=== PATIENT | male | born 1940 | race Caucasian/White ===

== ENCOUNTER → 2018-03-02 | Outpatient (CLI) | payer MEDICARE ==
--- NOTE | 2018-03-02 11:56 | ECHOF ---
Referral Reason:I10 Hypertension R07.89 Chest Pain MEASUREMENTS -------- HEIGHT: 182.9 cm WEIGHT: 111.1 kg BP: RVIDd: 3.6 cm (< 3.3) IVSd: 1.5 cm (0.6 - 1.1) LVIDd: 4.3 cm (3.9 - 5.3) LVPWd: 1.4 cm (0.6 - 1.1) IVSs: 1.9 cm LVIDs: 3.0 cm LVPWs: 1.8 cm LA Diam: 3.8 cm (2.7 - 3.8) LAESV Index (A-L): 29.94 ml/m Ao Diam: 3.3 cm (2.0 - 3.7) AV Cusp: 2.3 cm (1.5 - 2.6) MV EXCURSION: 12.842 mm (> 18.000) MV EF SLOPE: 29 mm/s (70 - 150) EPSS: 0.3 cm MV E Connor: 0.82 m/s MV DecT: 223 ms MV A Connor: 0.95 m/s MV E/A Ratio: 0.87 AR PHT: 668 ms RAP: 5.00 mmHg RVSP: 20.86 mmHg FINDINGS -------- Sinus rhythm. This was a technically adequate study. The left ventricular size is normal. There is moderate concentric left ventricular hypertrophy. O verall left ventricular systolic function is normal with, an EF between 55 - 60 %. The right ventricle is mildly enlarged. LA is midly dilated 29-33ml/m2. The right atrium is normal in size. There is mild aortic valve sclerosis. There is mild aortic regurgitation. The mitral valve is normal. Mild tricuspid regurgitation present. Right ventricular systolic pressure is normal at < 35 mmHg. Trace/mild (physiologic) pulmonic regurgitation. The aortic root size is normal. IVC Not well visulized. There is no pericardial effusion. CONCLUSIONS -------- 1. Sinus rhythm. 2. This was a technically adequate study. 3. The left ventricular size is normal. 4. There is moderate concentric left ventricular hypertrophy. 5. Overall left ventricular systolic function is normal with, an EF between 55 - 60 %. 6. The right ventricle is mildly enlarged. 7. LA is midly dilated 29-33ml/m2. 8. The right atrium is normal in size. 9. There is mild aortic valve sclerosis. 10. There is mild aortic regurgitation. 11. The mitral valve is normal. 12. Mild tricuspid regurgitation present. 13. Right ventricular systolic pressure is normal at < 35 mmHg. 14. Trace/mild (physiologic) pulmonic regurgitation. 15. The aortic root size is normal. 16. IVC Not well visulized. 17. There is no pericardial effusion. FINANCIAL DATA ANALYST: Jeniffer Dugan RDCS
--- NOTE | 2018-03-02 12:51 | ECHOS ---
STRESS ECHOCARDIOGRAM DATE OF SERVICE: 03/02/2018 INDICATIONS: Hypertension and shortness of breath. MEDICATIONS: BASELINE HEART RATE: 65 BASELINE BLOOD PRESSURE: 160/82 MAXIMUM HEART RATE: 125 MAXIMUM BLOOD PRESSURE: 174/89 85% MPHR: 123 100% MPHR: 145 METS: 7.0 MAXIMUM STAGE REACHED: II TOTAL EXERCISE TIME: 5 minutes CLINICAL INFORMATION: The patient was exercised for a total period of 5 minutes. Peak heart rate of 125 was achieved. Maximum blood pressure 174/89 mmHg was noted. Resting EKG shows normal sinus rhythm with normal FL interval and QRS duration and normal ST-T waves. No ST-segment depression suggestive of ischemia is noted. The baseline echocardiographic images reveals normal left ventricular chamber size with normal left ventricular systolic function. In the immediate post exercise period, normal increase in the wall thickness and contractility is noted. FINAL IMPRESSION: This stress echocardiographic study is negative for stress-induced ischemia. Patient's exercise tolerance is average. No dysrhythmias are noted. MMODL / IJN: [id number] /
== END | disposition home or self-care (01) ==
LOC: RADECHMAIN 08:02
PROVIDERS: ATTEND Family Medicine
DX: I08.2 Rheumatic disorders of both aortic and tricuspid valves (principal); I11.9 Hypertensive heart disease without heart failure; R07.89 Other chest pain
CPT/HCPCS: 93306; 93351

== ENCOUNTER → 2018-06-14 | Outpatient (CLI) | payer MEDICARE ==
--- NOTE | 2018-06-14 14:28 | XR ---
EXAMINATION TYPE: XR thoracic spine complete DATE OF EXAM: 06/14/2018 CLINICAL HISTORY: Radiculopathy per order. Pain for 2 weeks per patient. TECHNIQUE: Frontal, lateral, and swimmer's view of thoracic spine are obtained. COMPARISON: None. FINDINGS: Thoracic spine show straightened alignment without evidence of acute fracture or dislocatio n. Vertebral body heights are fairly well preserved. There is mild to moderate multilevel disc space narrowing in the lower thoracic spine. There is moderate to severe multilevel anterior and lateral s purring in the mid to lower thoracic spine. Visualized ribs are intact bilaterally. IMPRESSION: As above.
== END ==
LOC: RADXRMAIN 13:50
PROVIDERS: ATTEND Family Medicine
DX: M48.04 Spinal stenosis, thoracic region (principal)
CPT/HCPCS: 72072

== ENCOUNTER → 2019-05-22 | Outpatient (CLI) | payer MEDICARE ==
--- NOTE | 2019-05-22 11:58 | XR ---
EXAMINATION TYPE: XR chest 2V DATE OF EXAM: 05/22/2019 COMPARISON: None INDICATION: Dyspnea TECHNIQUE: Frontal and lateral views of the chest are obtained. FINDINGS: The heart size is normal. The pulmonary vasculature is normal. The lungs are clear. IMPRESSION: 1. No acute pulmonary process.
== END | disposition home or self-care (01) ==
LOC: RADXRMAIN 11:09
PROVIDERS: ATTEND Family Medicine
DX: R06.09 Other forms of dyspnea (principal)
CPT/HCPCS: 71046

== ENCOUNTER → 2021-01-13 | Outpatient (CLI) | payer MEDICARE ==
[~2021-01-13] MED LIST: ACETAMINOPHEN TAB 500 MG TAB PO STA; BAMLANIVIMAB (EUA) 700 MG, ETESEVIMAB (EUA) 1,400 MG in SODIUM CHLORIDE 0.9% 50 ML IVPB ONE; KETOROLAC 15 MG/ML 1 ML VIAL IVP STA; SODIUM CHLORIDE 0.9% 1,000 ML IV STA; SODIUM CHLORIDE 0.9% 50 ML IVPB ONE; SODIUM CHLORIDE 0.9% 500 ML 500 ML in EMPTY BAG 1 BAG IV PRN
--- NOTE | 2021-01-13 11:31 | ED ---
General Adult HPI - General Chief complaint: Upper Respiratory Infection Stated complaint: Covid exposure, SOB Time Seen by Provider: 01/13/21 11:04 Source: patient Mode of arrival: ambulatory Limitations: no limitations - History of Present Illness Initial comments: 80-year-old male with a past medical history of hyperlipidemia, hypertension presents to the emergency room for a chief complaint of not feeling well. Patient states 5 days ago he started to not feel well. States he started to develop body aches and a cough. States that this started to improve however worsened again today. States he is having body aches especially in his back. States that he has a cough but no shortness of breath. Denies chest pain. Patient does admit to slight diarrhea. States he does not have an appetite and has not been drinking much. Patient is concerned that he could have coronavirus. I did recheck his temperature in the room and it is 102.9.Patient has no other complaints at this time including shortness of breath, chest pain, abdominal pain, nausea or vomiting, headache, or visual changes. - Related Data Home Medications Medication Instructions Recorded Confirmed Celecoxib [CeleBREX] 200 mg PO BID 01/13/21 01/13/21 Furosemide [Lasix] 20 mg PO DAILY PRN 01/13/21 01/13/21 Latanoprost [Xalatan 0.005%] 1 drop BOTH EYES HS 01/13/21 01/13/21 Multivitamins, Thera [Multivitamin 1 tab PO DAILY 01/13/21 01/13/21 (formulary)] Quinapril/Hydrochlorothiazide 1 tab PO DAILY 01/13/21 01/13/21 [Quinapril-Hctz 20-25 mg Tab] RX: Omeprazole 20 mg PO DAILY 01/13/21 01/13/21 Simvastatin [Zocor] 80 mg PO HS 01/13/21 01/13/21 Allergies Allergy/AdvReac Type Severity Reaction Status Date / Time No Known Allergies Allergy Verified 01/13/21 11:51 Review of Systems ROS Statement: Those systems with pertinent positive or pertinent negative responses have been documented in the HPI. ROS Other: All systems not noted in ROS Statement are negative. Past Medical History Past Medical History: Heart Failure, Hyperlipidemia, Hypertension History of Any Multi-Drug Resistant Organisms: None Reported Additional Past Surgical History / Comment(s): L knee arthroscopy Past Psychological History: No Psychological Hx Reported Smoking Status: Never smoker Past Alcohol Use History: Occasional Past Drug Use History: None Reported General Exam Limitations: no limitations General appearance: alert, in no apparent distress Head exam: Present: atraumatic, normocephalic, normal inspection Eye exam: Present: normal appearance, PERRL, EOMI. Absent: scleral icterus, conjunctival injection, periorbital swelling ENT exam: Present: normal exam, mucous membranes moist Neck exam: Present: normal inspection. Absent: tenderness, meningismus, lymphadenopathy Respiratory exam: Present: normal lung sounds bilaterally. Absent: respiratory distress, wheezes, rales, rhonchi, stridor Cardiovascular Exam: Present: regular rate, normal rhythm, normal heart sounds. Absent: systolic murmur, diastolic murmur, rubs, gallop, clicks GI/Abdominal exam: Present: soft, normal bowel sounds. Absent: distended, tenderness, guarding, rebound, rigid Course Vital Signs 01/13/21 01/13/21 01/13/21 10:56 11:50 13:41 Temperature 98.6 F 102.9 F H 99.0 F Pulse Rate 72 59 L Respiratory 18 16 Rate Blood Pressure 148/80 136/78 O2 Sat by Pulse 96 96 Oximetry Medical Decision Making - Medical Decision Making Vitals are stable. Patient does have a 102.9 fever. He is well-appearing. CBC unremarkable. CMP does show evidence of dehydration. He also has mild hyponatremia. He was given a liter of fluid. Urinalysis is unremarkable. Patient is coronavirus positive. He does have an infiltrate in the right upper lobe suspicious for Covid pneumonia. At this time patient is well-appearing and stable. He is saturating at 95% while I am in the room. He is comfortable with discharge home. He is feeling better after fluids and antipyretics. I did discuss risks versus benefits of antibody infusion including emergency use authorization and risk of ALLERGIC reaction. Patient does prefer to have this infusion. He will be discharged home after infusion is completed. - Lab Data Result diagrams: 01/13/21 12:19 01/13/21 12:19 Lab Results 01/13/21 01/13/21 01/13/21 Range/Units 11:52 11:52 12:19 WBC 5.2 (3.8-10.6) k/uL RBC 5.54 (4.30-5.90) m/uL Hgb 14.6 (13.0-17.5) gm/dL Hct 42.4 (39.0-53.0) % MCV 76.5 L (80.0-100.0) fL MCH 26.3 (25.0-35.0) pg MCHC 34.3 (31.0-37.0) g/dL RDW 17.0 H (11.5-15.5) % Plt Count 170 (150-450) k/uL MPV 8.0 Neutrophils % 78 % Lymphocytes % 15 % Monocytes % 6 % Eosinophils % 0 % Basophils % 0 % Neutrophils # 4.0 (1.3-7.7) k/uL Lymphocytes # 0.8 L (1.0-4.8) k/uL Monocytes # 0.3 (0-1.0) k/uL Eosinophils # 0.0 (0-0.7) k/uL Basophils # 0.0 (0-0.2) k/uL Anisocytosis Slight Microcytosis Slight Sodium (137-145) mmol/L Potassium (3.5-5.1) mmol/L Chloride (98-107) mmol/L Carbon Dioxide (22-30) mmol/L Anion Gap mmol/L BUN (9-20) mg/dL Creatinine (0.66-1.25) mg/dL Est GFR (CKD-EPI)AfAm (>60 ml/min/1.73 sqM) Est GFR (CKD-EPI)NonAf (>60 ml/min/1.73 sqM) Glucose (74-99) mg/dL Calcium (8.4-10.2) mg/dL Total Bilirubin (0.2-1.3) mg/dL AST (17-59) U/L ALT (4-49) U/L Alkaline Phosphatase (38-126) U/L Total Protein (6.3-8.2) g/dL Albumin (3.5-5.0) g/dL Urine Color Yellow Urine Appearance Clear (Clear) Urine pH 5.5 (5.0-8.0) Ur Specific [place] 1.023 (1.001-1.035) Urine Protein 2+ H (Negative) Urine Glucose (UA) Negative (Negative) Urine Ketones 1+ H (Negative) Urine Blood Small H (Negative) Urine Nitrite Negative (Negative) Urine Bilirubin Negative (Negative) Urine Urobilinogen <2.0 (<2.0) mg/dL Ur Leukocyte Esterase Negative (Negative) Urine RBC 1 (0-5) /hpf Urine WBC 2 (0-5) /hpf Ur Squamous Epith Cells <1 (0-4) /hpf Urine Mucus Occasional H (None) /hpf Coronavirus (PCR) Detected A (Not Detectd) 01/13/21 Range/Units 12:19 WBC (3.8-10.6) k/uL RBC (4.30-5.90) m/uL Hgb (13.0-17.5) gm/dL Hct (39.0-53.0) % MCV (80.0-100.0) fL MCH (25.0-35.0) pg MCHC (31.0-37.0) g/dL RDW (11.5-15.5) % Plt Count (150-450) k/uL MPV Neutrophils % % Lymphocytes % % Monocytes % % Eosinophils % % Basophils % % Neutrophils # (1.3-7.7) k/uL Lymphocytes # (1.0-4.8) k/uL Monocytes # (0-1.0) k/uL Eosinophils # (0-0.7) k/uL Basophils # (0-0.2) k/uL Anisocytosis Microcytosis Sodium 129 L (137-145) mmol/L Potassium 3.7 (3.5-5.1) mmol/L Chloride 98 (98-107) mmol/L Carbon Dioxide 22 (22-30) mmol/L Anion Gap 9 mmol/L BUN 25 H (9-20) mg/dL Creatinine 1.09 (0.66-1.25) mg/dL Est GFR (CKD-EPI)AfAm 75 (>60 ml/min/1.73 sqM) Est GFR (CKD-EPI)NonAf 65 (>60 ml/min/1.73 sqM) Glucose 97 (74-99) mg/dL Calcium 8.0 L (8.4-10.2) mg/dL Total Bilirubin 0.8 (0.2-1.3) mg/dL AST 60 H (17-59) U/L ALT 28 (4-49) U/L Alkaline Phosphatase 58 (38-126) U/L Total Protein 5.7 L (6.3-8.2) g/dL Albumin 3.1 L (3.5-5.0) g/dL Urine Color Urine Appearance (Clear) Urine pH (5.0-8.0) Ur Specific [place] (1.001-1.035) Urine Protein (Negative) Urine Glucose (UA) (Negative) Urine Ketones (Negative) Urine Blood (Negative) Urine Nitrite (Negative) Urine Bilirubin (Negative) Urine Urobilinogen (<2.0) mg/dL Ur Leukocyte Esterase (Negative) Urine RBC (0-5) /hpf Urine WBC (0-5) /hpf Ur Squamous Epith Cells (0-4) /hpf Urine Mucus (None) /hpf Coronavirus (PCR) (Not Detectd) Disposition Clinical Impression: Pneumonia due to COVID-19 virus, COVID-19, Dehydration Disposition: ADMITTED IP TO THIS HOSP Condition: Fair Instructions (If sedation given, give patient instructions): Coronavirus Disease 2019 (COVID-19) Additional Instructions: Please drink plenty of fluids. Take Tylenol as needed for fever. You can take 2 extra strength Tylenols every 6 hours. Follow-up with your doctor. Return to the emergency room for any worsening symptoms. Is patient prescribed a controlled substance at d/c from ED?: No Referrals: Jomar Pederson MD [Primary Care Provider] - 1-2 days Time of Disposition: 13:55
--- NOTE | 2021-01-13 12:28 | XR ---
EXAMINATION TYPE: XR chest 1V portable DATE OF EXAM: 01/13/2021 HISTORY: Shortness of breath. COMPARISON: 05/22/2019 TECHNIQUE: Single view of the chest is submitted. FINDINGS: Demonstrated are scattered senescent parenchymal change. There is infiltrate right upper lobe suspicious for Covid 19 pneumonia. The heart is stable. Hilar and mediastinal structures are within normal limits. Degenerative changes are seen of the dorsal spine. IMPRESSION: 1. There is infiltrate right upper lobe suspicious for Covid 19 pneumonia.
[2021-01-13 12:30] LABS: Appearance,Urine Clear (Clear); Bilirubin,Urine Negative (Negative); Blood,Urine Small (Negative); Color,Urine Yellow; Glucose,Urine (UA) Negative (Negative); Ketones,Urine 1+ (Negative); Leukocyte Esterase,Urine Negative (Negative); Mucus,Urine Occasional /hpf; Nitrite,Urine Negative (Negative); PH, Urine 5.5 (5.0-8.0); Protein,Urine 2+ (Negative); RBC,Urine 1 /hpf (0-5); Specific Gravity,Urine 1.023 (1.001-1.035); Squamous Epithelial Cell,Urine <1 /hpf (0-4); Urobilinogen,Urine <2.0 mg/dL (<2.0); WBC,Urine 2 /hpf (0-5)
[2021-01-13 12:32] LABS: Anisocytosis Slight; Basophils % (A) 0 %; Eosinophils % (A) 0 %; HCT 42.4 % (39.0-53.0); HGB 14.6 gm/dL (13.0-17.5); Lymphocytes # (A) 0.8 k/uL (1.0-4.8); Lymphocytes % (A) 15 %; MCH 26.3 pg (25.0-35.0); MCHC 34.3 g/dL (31.0-37.0); MCV 76.5 fL (80.0-100.0); Microcytosis Slight; Monocytes # (A) 0.3 k/uL (0-1.0); Monocytes % (A) 6 %; Neutrophils % (A) 78 %; Platelet Count 170 k/uL (150-450); RBC 5.54 m/uL (4.30-5.90); WBC 5.2 k/uL (3.8-10.6)
[2021-01-13 12:50] LABS: Albumin 3.1 g/dL (3.5-5.0); Potassium 3.7 mmol/L (3.5-5.1); Total Bilirubin 0.8 mg/dL (0.2-1.3); Total Protein 5.7 g/dL (6.3-8.2)
[2021-01-13 14:26] VITALS: RESP 18; TEMP 97.7
[2021-01-13 16:12] VITALS: BP 152/71; PULSE 54
== END ==
LOC: EC 10:50 → PROCWHC3 10:50 → EDSTATUS 14:09
PROVIDERS: ATTEND Physician Assistant Medical
DX: U07.1 COVID-19 (principal); J12.82 Pneumonia due to coronavirus disease 2019; Z79.1 Long term (current) use of non-steroidal anti-inflammatories (NSAID); Z79.899 Other long term (current) drug therapy; I11.0 Hypertensive heart disease with heart failure; E86.0 Dehydration; E78.5 Hyperlipidemia, unspecified
CPT/HCPCS: 36415; 80053; 85025; 81001; 87635; 71045; J1885; Q0245; M0245; 96361; 96374; 99283

== ENCOUNTER → 2021-01-27 | Outpatient (CLI) | payer MEDICARE ==
--- NOTE | 2021-01-28 06:34 | XR ---
EXAMINATION TYPE: XR chest 2V DATE OF EXAM: 01/27/2021 COMPARISON: Chest x-ray January 13, 2021 HISTORY: Shortness of breath today. Recent covid positive. TECHNIQUE: Frontal and lateral views of the chest are obtained. FINDINGS: There are worsening bilateral multifocal opacities. The cardiac silhouette size is stable and within normal limits. Multilevel spurring in the spine. IMPRESSION: Worsening bilateral multifocal opacities consistent with covid-19 infection progression.
== END | disposition home or self-care (01) ==
LOC: RADXRMAIN 16:45
PROVIDERS: ATTEND Nurse Practitioner
DX: U07.1 COVID-19 (principal)
CPT/HCPCS: 71046

== ENCOUNTER 2021-01-28 01:16 | Inpatient (IN) | payer MEDICARE ==
[2021-01-28] MEDS ORDERED: ACETAMINOPHEN TAB 500 MG TAB PO STA (01:42)
[2021-01-28] MEDS ORDERED: KETOROLAC 15 MG/ML 1 ML VIAL IVP STA (01:42)
[2021-01-28] MEDS ORDERED: ALBUTEROL HFA INHALER INHALATION STA (01:42)
[2021-01-28] MEDS ORDERED: SODIUM CHLORIDE 0.9% 1,000 ML IV STA ×2 (01:42)
--- NOTE | 2021-01-28 01:46 | ED ---
Syncope HPI - General Chief Complaint: Dizziness Stated Complaint: Covid+ Time Seen by Provider: 01/28/21 01:37 Source: patient, RN notes reviewed, old records reviewed, Caregiver Mode of arrival: EMS Limitations: no limitations - History of Present Illness Initial Comments: This is a 72-year-old male who presents today after syncopal event. Patient jennifer mosher this event did hit his head. Patient had urination and then syncope. Patient denying chest pain but has been short of breath of increasing fatigue significance lately disease does feel short of breath throughout recent coronavirus diagnosis. Minimal movement does admit to lower extremity edema and swelling especially right lower Shorty. Which she states is always greater than left. No recurrent fevers currently MD Complaint: loss of consciousness, collapsed -: hour(s) Prodromal Symptoms: none -: second(s) Witnessed: no Injuries Sustained Associated with Event: Head Current Symptoms: shortness of breath, weakness History: other (Recent coronavirus infection) Context: recent illness Treatments Prior to Arrival: none - Related Data Home Medications Medication Instructions Recorded Confirmed Celecoxib [CeleBREX] 200 mg PO BID 01/13/21 01/28/21 Furosemide [Lasix] 20 mg PO DAILY PRN 01/13/21 01/28/21 Latanoprost [Xalatan 0.005%] 1 drop BOTH EYES HS 01/13/21 01/28/21 Multivitamins, Thera [Multivitamin 1 tab PO DAILY 01/13/21 01/28/21 (formulary)] Omeprazole 20 mg PO DAILY 01/13/21 01/28/21 Quinapril/Hydrochlorothiazide 1 tab PO DAILY 01/13/21 01/28/21 [Quinapril-Hctz 20-25 mg Tab] Simvastatin [Zocor] 80 mg PO HS 01/13/21 01/28/21 Azithromycin [Zithromax Z-pack (6 See Taper PO DIRECTED 01/28/21 01/28/21 tabs)] Cefdinir 300 mg PO BID 01/28/21 01/28/21 methylPREDNISolone [Medrol Dose See Taper PO DIRECTED 01/28/21 01/28/21 Pack] Allergies Allergy/AdvReac Type Severity Reaction Status Date / Time No Known Allergies Allergy Verified 01/13/21 11:51 Review of Systems ROS Statement: Those systems with pertinent positive or pertinent negative responses have been documented in the HPI. ROS Other: All systems not noted in ROS Statement are negative. Past Medical History Past Medical History: Heart Failure, Hyperlipidemia, Hypertension History of Any Multi-Drug Resistant Organisms: None Reported Additional Past Surgical History / Comment(s): L knee arthroscopy Past Psychological History: No Psychological Hx Reported Smoking Status: Never smoker Past Alcohol Use History: None Reported Past Drug Use History: None Reported General Exam Limitations: no limitations General appearance: alert, in no apparent distress, anxious, in distress Head exam: Present: atraumatic, normocephalic, normal inspection Eye exam: Present: normal appearance, PERRL, EOMI. Absent: scleral icterus, conjunctival injection, periorbital swelling ENT exam: Present: normal exam, mucous membranes dry Neck exam: Present: normal inspection. Absent: tenderness, meningismus, lymphadenopathy Respiratory exam: Present: normal lung sounds bilaterally. Absent: respiratory distress, wheezes, rales, rhonchi, stridor Cardiovascular Exam: Present: regular rate, normal rhythm, normal heart sounds. Absent: systolic murmur, diastolic murmur, rubs, gallop, clicks GI/Abdominal exam: Present: soft, normal bowel sounds. Absent: distended, ten derness, guarding, rebound, rigid Extremities exam: Present: normal inspection, full ROM, normal capillary refill. Absent: tenderness, pedal edema, joint swelling, calf tenderness Back exam: Present: normal inspection Neurological exam: Present: alert, oriented X3, CN II-XII intact Psychiatric exam: Present: normal affect, normal mood Skin exam: Present: warm, dry, intact, normal color. Absent: rash Course Vital Signs 01/28/21 01/28/21 01/28/21 01:35 01:43 01:45 Temperature 98.7 F Pulse Rate 79 Respiratory 19 19 Rate Blood Pressure 109/64 O2 Sat by Pulse 87 L 96 Oximetry 01/28/21 01/28/21 01/28/21 02:00 03:03 03:44 Temperature Pulse Rate 101 H 98 97 Respiratory 19 18 16 Rate Blood Pressure 113/69 122/80 122/81 O2 Sat by Pulse 94 L 99 97 Oximetry 01/28/21 01/28/21 05:15 05:59 Temperature 98.5 F Pulse Rate 81 78 Respiratory 18 18 Rate Blood Pressure 109/81 110/73 O2 Sat by Pulse 97 97 Oximetry - Reevaluation(s) Reevaluation #1: Medical record is reviewed Patient symptoms significantly improved here in the ER Patient informed of results and questions have been answered No recurrent syncope here in the ER EKG Findings - EKG Comments: EKG Findings:: EKG is sinus tachycardia 107 RI 128 QRS 12 4 QTc 477 Medical Decision Making - Medical Decision Making 80 male DF for evaluation patient is syncopal event, this is related to recent coronavirus complicated with bilateral PEs. Patient be admitted for vascular surgery treatment and evaluation, anticoagulation and monitoring of cardiopulmonary status - Lab Data Result diagrams: 01/29/21 00:15 01/28/21 02:02 Lab Results 01/28/21 01/28/21 01/28/21 Range/Units 02:02 02:02 02:02 WBC 9.7 (3.8-10.6) k/uL RBC 5.06 (4.30-5.90) m/uL Hgb 13.6 (13.0-17.5) gm/dL Hct 41.1 (39.0-53.0) % MCV 81.1 (80.0-100.0) fL MCH 26.8 (25.0-35.0) pg MCHC 33.0 (31.0-37.0) g/dL RDW 18.1 H (11.5-15.5) % Plt Count 359 D (150-450) k/uL MPV 8.0 Neutrophils % 91 % Lymphocytes % 6 % Monocytes % 2 % Eosinophils % 0 % Basophils % 0 % Neutrophils # 8.8 H (1.3-7.7) k/uL Lymphocytes # 0.6 L (1.0-4.8) k/uL Monocytes # 0.2 (0-1.0) k/uL Eosinophils # 0.0 (0-0.7) k/uL Basophils # 0.0 (0-0.2) k/uL Anisocytosis Slight Microcytosis Slight PT 11.7 (9.0-12.0) sec INR 1.1 (<1.2) APTT 23.2 (22.0-30.0) sec D-Dimer 15.49 H (<0.60) mg/L FEU Sodium 135 L (137-145) mmol/L Potassium 4.4 (3.5-5.1) mmol/L Chloride 102 (98-107) mmol/L Carbon Dioxide 18 L (22-30) mmol/L Anion Gap 15 mmol/L BUN 29 H (9-20) mg/dL Creatinine 1.35 H (0.66-1.25) mg/dL Est GFR (CKD-EPI)AfAm 58 (>60 ml/min/1.73 sqM) Est GFR (CKD-EPI)NonAf 50 (>60 ml/min/1.73 sqM) Glucose 246 H (74-99) mg/dL Lactic Ac Sepsis Rflx Plasma Lactic Acid Darrin (0.7-2.0) mmol/L Calcium 9.0 (8.4-10.2) mg/dL Magnesium 2.1 (1.6-2.3) mg/dL Total Bilirubin 1.7 H (0.2-1.3) mg/dL AST 280 H (17-59) U/L ALT 188 H (4-49) U/L Alkaline Phosphatase 255 H (38-126) U/L Lactate Dehydrogenase 1271 H (313-618) U/L Troponin I (0.000-0.034) ng/mL C-Reactive Protein 22.7 H (<1.0) mg/dL NT-Pro-B Natriuret Pep pg/mL Total Protein 6.3 (6.3-8.2) g/dL Albumin 3.3 L (3.5-5.0) g/dL Lipase (23-300) U/L 01/28/21 01/28/21 01/28/21 Range/Units 02:02 02:02 02:27 WBC (3.8-10.6) k/uL RBC (4.30-5.90) m/uL Hgb (13.0-17.5) gm/dL Hct (39.0-53.0) % MCV (80.0-100.0) fL MCH (25.0-35.0) pg MCHC (31.0-37.0) g/dL RDW (11.5-15.5) % Plt Count (150-450) k/uL MPV Neutrophils % % Lymphocytes % % Monocytes % % Eosinophils % % Basophils % % Neutrophils # (1.3-7.7) k/uL Lymphocytes # (1.0-4.8) k/uL Monocytes # (0-1.0) k/uL Eosinophils # (0-0.7) k/uL Basophils # (0-0.2) k/uL Anisocytosis Microcytosis PT (9.0-12.0) sec INR (<1.2) APTT (22.0-30.0) sec D-Dimer (<0.60) mg/L FEU Sodium (137-145) mmol/L Potassium (3.5-5.1) mmol/L Chloride (98-107) mmol/L Carbon Dioxide (22-30) mmol/L Anion Gap mmol/L BUN (9-20) mg/dL Creatinine (0.66-1.25) mg/dL Est GFR (CKD-EPI)AfAm (>60 ml/min/1.73 sqM) Est GFR (CKD-EPI)NonAf (>60 ml/min/1.73 sqM) Glucose (74-99) mg/dL Lactic Ac Sepsis Rflx Y Plasma Lactic Acid Darrin 2.9 H* (0.7-2.0) mmol/L Calcium (8.4-10.2) mg/dL Magnesium (1.6-2.3) mg/dL Total Bilirubin (0.2-1.3) mg/dL AST (17-59) U/L ALT (4-49) U/L Alkaline Phosphatase (38-126) U/L Lactate Dehydrogenase (313-618) U/L Troponin I (0.000-0.034) ng/mL C-Reactive Protein (<1.0) mg/dL NT-Pro-B Natriuret Pep pg/mL Total Protein (6.3-8.2) g/dL Albumin (3.5-5.0) g/dL Lipase 63 (23-300) U/L 01/28/21 01/28/21 01/28/21 Range/Units 03:40 03:40 03:40 WBC (3.8-10.6) k/uL RBC (4.30-5.90) m/uL Hgb (13.0-17.5) gm/dL Hct (39.0-53.0) % MCV (80.0-100.0) fL MCH (25.0-35.0) pg MCHC (31.0-37.0) g/dL RDW (11.5-15.5) % Plt Count (150-450) k/uL MPV Neutrophils % % Lymphocytes % % Monocytes % % Eosinophils % % Basophils % % Neutrophils # (1.3-7.7) k/uL Lymphocytes # (1.0-4.8) k/uL Monocytes # (0-1.0) k/uL Eosinophils # (0-0.7) k/uL Basophils # (0-0.2) k/uL Anisocytosis Microcytosis PT 35.8 H (9.0-12.0) sec INR 3.7 H (<1.2) APTT (22.0-30.0) sec D-Dimer (<0.60) mg/L FEU Sodium (137-145) mmol/L Potassium (3.5-5.1) mmol/L Chloride (98-107) mmol/L Carbon Dioxide (22-30) mmol/L Anion Gap mmol/L BUN (9-20) mg/dL Creatinine (0.66-1.25) mg/dL Est GFR (CKD-EPI)AfAm (>60 ml/min/1.73 sqM) Est GFR (CKD-EPI)NonAf (>60 ml/min/1.73 sqM) Glucose (74-99) mg/dL Lactic Ac Sepsis Rflx Plasma Lactic Acid Darrin (0.7-2.0) mmol/L Calcium (8.4-10.2) mg/dL Magnesium (1.6-2.3) mg/dL Total Bilirubin (0.2-1.3) mg/dL AST (17-59) U/L ALT (4-49) U/L Alkaline Phosphatase (38-126) U/L Lactate Dehydrogenase (313-618) U/L Troponin I 0.789 H* (0.000-0.034) ng/mL C-Reactive Protein (<1.0) mg/dL NT-Pro-B Natriuret Pep 2080 pg/mL Total Protein (6.3-8.2) g/dL Albumin (3.5-5.0) g/dL Lipase (23-300) U/L - Radiology Data Radiology results: report reviewed (CTA chest does show PE, CT brain negative for acute disease, ultrasound pending), image reviewed Critical Care Time Critical Care Time: Yes Total Critical Care Time: 31 Disposition Clinical Impression: Pneumonia due to COVID-19 virus, COVID-19, Dehydration, Pulmonary embolism, Syncope Disposition: ADMITTED IP TO THIS HOSP Condition: Serious Is patient prescribed a controlled substance at d/c from ED?: No
[2021-01-28 02:22] LABS: Albumin 3.3 g/dL (3.5-5.0); Magnesium 2.1 mg/dL (1.6-2.3); Potassium 4.4 mmol/L (3.5-5.1); Total Bilirubin 1.7 mg/dL (0.2-1.3); Total Protein 6.3 g/dL (6.3-8.2)
[2021-01-28 02:30] LABS: Anisocytosis Slight; Basophils % (A) 0 %; Eosinophils % (A) 0 %; HCT 41.1 % (39.0-53.0); HGB 13.6 gm/dL (13.0-17.5); Lymphocytes # (A) 0.6 k/uL (1.0-4.8); Lymphocytes % (A) 6 %; MCH 26.8 pg (25.0-35.0); MCV 81.1 fL (80.0-100.0); Microcytosis Slight; Monocytes # (A) 0.2 k/uL (0-1.0); Monocytes % (A) 2 %; Neutrophils # (A) 8.8 k/uL (1.3-7.7); Neutrophils % (A) 91 %; RBC 5.06 m/uL (4.30-5.90); RDW 18.1 % (11.5-15.5); WBC 9.7 k/uL (3.8-10.6)
[2021-01-28 02:37] LABS: Platelet Count 359 k/uL (150-450)
[2021-01-28 02:38] LABS: C Reactive Protein 22.7 mg/dL (<1.0)
[2021-01-28 02:44] LABS: INR 1.1 (<1.2); Partial Thromboplastin Time 23.2 sec (22.0-30.0); Prothrombin Time 11.7 sec (9.0-12.0)
[2021-01-28 02:47] LABS: D-Dimer 15.49 mg/L FEU (<0.60)
--- NOTE | 2021-01-28 03:24 | CT ---
EXAM: CT Angiography Chest With Intravenous Contrast CLINICAL HISTORY: ITS.REASON CT Reason: cp TECHNIQUE: Axial computed tomographic angiography images of the chest with intravenous contrast. CTDI is 16.8 mGy and DLP is 665.1 mGy-cm. This CT exam was performed using one or more of the following dose reduction techniques: automated exposure control, adjustment of the mA and/or kV according to patient size, and/or use of iterative reconstruction technique. MIP reconstructed images were created and reviewed. COMPARISON: No relevant prior studies available. FINDINGS: Pulmonary arteries: The pulmonary arterial tree is well-opacified with contrast. There are filling defects in the main left and right pulmonary arteries as well as in all lobar branches with a high clot burden. The RV/LV ratio is elevated measuring approximately 1.7 indicating right heart strain. Aorta: No acute findings. No thoracic aortic aneurysm. Lungs: There are scattered reticular infiltrates throughout both lungs consistent with viral or atypical pneumonitis, less likely pulmonary fibrosis. No mass. Pleural space: Unremarkable. No significant effusion. No pneumothorax. Heart: See above. Bones/joints: Moderate degenerative changes are seen in the lower thoracic spine. No acute fracture or bone lesion. No dislocation. Soft tissues: Unremarkable. Lymph nodes: Unremarkable. No enlarged lymph nodes. Adrenals: Partial visualization of bilateral adrenal nodules measuring 1.8 cm in the left and 2.67 is in the right. Consider follow-up multiphase contrast-enhanced imaging with MRI or CT when clinically feasible. IMPRESSION: 1. The pulmonary arterial tree is well-opacified with contrast. There are filling defects in the main left and right pulmonary arteries as well as in all lobar branches with a high clot burden. The RV/LV ratio is elevated measuring approximately 1.7 indicating right heart strain. 2. There are scattered reticular infiltrates throughout both lungs consistent with viral or atypical pneumonitis such as Covid 19, less likely pulmonary fibrosis. 3. Partial visualization of bilateral adrenal nodules measuring 1.8 cm in the left and 2.67 is in the right. Consider follow-up multiphase contrast-enhanced imaging with MRI or CT when clinically feasible. <MYCVCSECTION> Communications: 01/28/21 03:26 Call Doctor Regarding Pulmonary Embolism, called Dr. Centeno on 01/28 03:26 (-04:00)
[2021-01-28] MEDS ORDERED: HEPARIN SODIUM 1,000 UN/ML (10ML VL) IV ONE (03:28)
[2021-01-28] MEDS ORDERED: HEPARIN SODIUM 1,000 UN/ML (10ML VL) IV PRN (03:28)
[2021-01-28] MEDS ORDERED: NITROGLYCERIN SL TABS 0.4 MG TAB SUBLINGUAL PRN (03:43)
[2021-01-28] MEDS ORDERED: MORPHINE SULFATE 4 MG/ML SYRINGE IV PRN (03:43)
[2021-01-28] MEDS ORDERED: SODIUM CHLORIDE 0.9% 1,000 ML IV SCH ×2 (03:45→07:00)
[2021-01-28 03:56] LABS: INR 3.7 (<1.2); Prothrombin Time 35.8 sec (9.0-12.0)
--- NOTE | 2021-01-28 05:36 | CT ---
EXAM: CT Head Without Intravenous Contrast CLINICAL HISTORY: ITS.REASON CT Reason: fall TECHNIQUE: Axial computed tomography images of the head/brain without intravenous contrast. CTDI is 30.85 mGy and DLP is 710.95 mGy-cm. This CT exam was performed using one or more of the following dose reduction techniques: automated exposure control, adjustment of the mA and/or kV according to patient size, and/or use of iterative reconstruction technique. COMPARISON: No relevant prior studies available. FINDINGS: Brain: Mild cerebral atrophy. There is no evidence of acute large vessel infarct or intracranial hemorrhage. Ventricles: Unremarkable. No ventriculomegaly. Bones/joints: Unremarkable. No acute fracture. Soft tissues: Unremarkable. Sinuses: Unremarkable as visualized. No acute sinusitis. Mastoid air cells: Unremarkable as visualized. No mastoid effusion. IMPRESSION: Mild cerebral atrophy. There is no evidence of acute large vessel infarct or intracranial hemorrhage. EXAM: CT Cervical Spine Without Intravenous Contrast CLINICAL HISTORY: ITS.REASON CT Reason: fall TECHNIQUE: Axial computed tomography images of the cervical spine without intravenous contrast. CTDI is 30.85 mGy and DLP is 710.95 mGy-cm. This CT exam was performed using one or more of the following dose reduction techniques: automated exposure control, adjustment of the mA and/or kV according to patient size, and/or use of iterative reconstruction technique. COMPARISON: No relevant prior studies available. FINDINGS: Vertebrae: See below. Interspaces: Soft tissues: Unremarkable. Dental: Mild narrowing and osteophytosis of the let the dental joint. The odontoid process is intact. DISCS/SPINAL CANAL/NEURAL FORAMINA: C2-C3: Mild disc space narrowing and osteophytosis. C3-C4: Moderate disc space narrowing and osteophytosis involving C3-4. C4-C5: 3 mm disc bulge with mild stenosis moderate left lateral recess narrowing. C5-C6: Severe disc space narrowing and mild spinal osteophytosis at C5- 6 and C6-7 mild spinal stenosis at C5-6 moderate to severe right lateral recess and neural foraminal narrowing due to osteophyte. C6-C7: See above. C7-T1: Unremarkable. No significant disc disease. No stenosis. IMPRESSION: Moderate multilevel degenerative changes are seen at the cervical spine. No acute fracture or traumatic subluxation is seen.
[2021-01-28] MEDS: HEPARIN SOD,PORK IN 0.45% NACL 25,000 UNIT in 0.45% NACL 1 250ML.BAG IV SCH ×2 (05:51→17:59)
[2021-01-28] MEDS ORDERED: Magnesium Replacement Protocol 1 EACH MISC MISCELLANE PRN (07:03)
[2021-01-28] MEDS ORDERED: Potassium Replacement Protocol 1 EACH MISC MISCELLANE PRN (07:03)
[2021-01-28] MEDS ORDERED: ACETAMINOPHEN TAB 325 MG TAB PO PRN (07:03)
[2021-01-28] MEDS ORDERED: MORPHINE SULFATE 2 MG/ML SYRINGE IVP PRN (07:04)
[2021-01-28] MEDS ORDERED: FUROSEMIDE 20 MG TAB PO PRN (07:23)
--- NOTE | 2021-01-28 07:49 | P.HPIM ---
History of Present Illness H&P Date: 01/28/21 Chief Complaint: Syncope/shortness of breath/generalized weakness 80-year-old male was admitted to the hospital with significant medical history of Covid 19 pneumoniatreated with monoclonal antibody therapy in the past, heart failure unspecified, hyperlipidemia, hypertension, GERD, and mild obesity. He states he became progressively short of breath and weak throughout the night, had a syncopal episodewas unable to catch his breath and became extreme shortness of breath. He also stated he had mild chest discomfort during the night. He was able to call EMS to deliver him to the emergency department. Patient had extensive diagnostic workup in the emergency department revealing significant pulmonary embolisms with right heart strain. He is initiated on high intensity heparin therapy for pulmonary embolisms-consult with pulmonary critical care, and vascular for recommendations and treatment plan. Consult with cardiology associates for chest discomfort and recommendations and treatment plan related to right heart strain. Patient endorses shortness of breath, painful inspiration, chest discomfort, and generalized weakness. Patient denies fever, chills, abdominal pain, nausea, or vomiting at this time. Patient and guarded prognosis due to complexity of medical issues. Review of Systems Constitutional: Reports weakness Ears, nose, mouth and throat: Reports as per HPI Cardiovascular: Reports decreased exercise tolerance, Reports dyspnea on exertion, Reports palpitations, Reports shortness of breath Respiratory: Reports pain on inspiration, Reports respiratory infections Musculoskeletal: Reports muscle weakness Neurological: Reports weakness Psychiatric: Reports as per HPI Endocrine: Reports as per HPI Hematologic/Lymphatic: Reports as per HPI Allergic/Immunologic: Reports as per HPI Past Medical History Past Medical History: Heart Failure, Hyperlipidemia, Hypertension History of Any Multi-Drug Resistant Organisms: None Reported Additional Past Surgical History / Comment(s): L knee arthroscopy Past Psychological History: No Psychological Hx Reported Smoking Status: Never smoker Past Alcohol Use History: None Reported Past Drug Use History: None Reported Medications and Allergies Home Medications and Allergies Comment(s): Medications and ALLERGIES reviewed Home Medications Medication Instructions Recorded Confirmed Type Celecoxib [CeleBREX] 200 mg PO BID 01/13/21 01/28/21 History Furosemide [Lasix] 20 mg PO DAILY PRN 01/13/21 01/28/21 History Latanoprost [Xalatan 0.005%] 1 drop BOTH EYES HS 01/13/21 01/28/21 History Multivitamins, Thera [Multivitamin 1 tab PO DAILY 01/13/21 01/28/21 History (formulary)] Omeprazole 20 mg PO DAILY 01/13/21 01/28/21 History Quinapril/Hydrochlorothiazide 1 tab PO DAILY 01/13/21 01/28/21 History [Quinapril-Hctz 20-25 mg Tab] Simvastatin [Zocor] 80 mg PO HS 01/13/21 01/28/21 History Azithromycin [Zithromax Z-pack (6 See Taper PO DIRECTED 01/28/21 01/28/21 History tabs)] Cefdinir 300 mg PO BID 01/28/21 01/28/21 History methylPREDNISolone [Medrol Dose See Taper PO DIRECTED 01/28/21 01/28/21 History Pack] Allergies Allergy/AdvReac Type Severity Reaction Status Date / Time No Known Allergies Allergy Verified 01/13/21 11:51 Physical Exam Vitals: Vital Signs Temp Pulse Resp BP Pulse Ox 01/28/21 05:59 98.5 F 78 18 110/73 97 01/28/21 05:15 81 18 109/81 97 01/28/21 03:44 97 16 122/81 97 01/28/21 03:03 98 18 122/80 99 01/28/21 02:00 101 H 19 113/69 94 L 01/28/21 01:45 96 01/28/21 01:43 19 01/28/21 01:35 98.7 F 79 19 109/64 87 L Intake and Output 01/27/21 01/28/21 01/28/21 22:59 06:59 14:59 Other: Weight 108.862 kg - Constitutional General appearance: mild distress - EENT Eyes: EOMI, PERRLA ENT: normal oropharynx Ears: bilateral: normal - Neck Carotids: bilateral: upstroke normal Thyroid: bilateral: normal size - Respiratory Respiratory: bilateral: CTA - Cardiovascular Sinus tachycardia with incomplete right bundle macho block Heart rate: 104 Rhythm: regular Heart sounds: normal: S1, S2 radial pulse Peripheral Pulses: bilateral: Normal dorsalis pedis Peripheral Pulses: bilateral: Normal - Gastrointestinal General gastrointestinal: normal bowel sounds - Integumentary Integumentary: normal - Neurologic Neurologic: CNII-XII intact - Musculoskeletal Musculoskeletal: generalized weakness - Psychiatric Psychiatric: A&O x's 3, appropriate affect, intact judgment & insight Results CBC & Chem 7: 01/28/21 02:02 01/28/21 02:02 Labs: Abnormal Lab Results - Last 24 Hours (Table) 01/28/21 01/28/21 01/28/21 Range/Units 02:02 02:02 02:02 RDW 18.1 H (11.5-15.5) % Neutrophils # 8.8 H (1.3-7.7) k/uL Lymphocytes # 0.6 L (1.0-4.8) k/uL PT (9.0-12.0) sec INR (<1.2) D-Dimer 15.49 H (<0.60) mg/L FEU Sodium 135 L (137-145) mmol/L Carbon Dioxide 18 L (22-30) mmol/L BUN 29 H (9-20) mg/dL Creatinine 1.35 H (0.66-1.25) mg/dL Glucose 246 H (74-99) mg/dL Plasma Lactic Acid Darrin (0.7-2.0) mmol/L Total Bilirubin 1.7 H (0.2-1.3) mg/dL AST 280 H (17-59) U/L ALT 188 H (4-49) U/L Alkaline Phosphatase 255 H (38-126) U/L Lactate Dehydrogenase 1271 H (313-618) U/L Troponin I (0.000-0.034) ng/mL C-Reactive Protein 22.7 H (<1.0) mg/dL Albumin 3.3 L (3.5-5.0) g/dL 01/28/21 01/28/21 01/28/21 Range/Units 02:02 03:40 03:40 RDW (11.5-15.5) % Neutrophils # (1.3-7.7) k/uL Lymphocytes # (1.0-4.8) k/uL PT 35.8 H (9.0-12.0) sec INR 3.7 H (<1.2) D-Dimer (<0.60) mg/L FEU Sodium (137-145) mmol/L Carbon Dioxide (22-30) mmol/L BUN (9-20) mg/dL Creatinine (0.66-1.25) mg/dL Glucose (74-99) mg/dL Plasma Lactic Acid Darrin 2.9 H* (0.7-2.0) mmol/L Total Bilirubin (0.2-1.3) mg/dL AST (17-59) U/L ALT (4-49) U/L Alkaline Phosphatase (38-126) U/L Lactate Dehydrogenase (313-618) U/L Troponin I 0.789 H* (0.000-0.034) ng/mL C-Reactive Protein (<1.0) mg/dL Albumin (3.5-5.0) g/dL Chest x-ray: report reviewed CT scan - chest: report reviewed CT Scan - head: report reviewed Thrombosis Risk Factor Assmnt - Choose All That Apply Each Factor Represents 1 point: Obesity (BMI >25), Swollen legs (current) Each Risk Factor Represents 3 Points: Age 75 years or older Thrombosis Risk Factor Assessment Total Risk Factor Score: 5 Thrombosis Risk Factor Assessment Level: High Risk Assessment and Plan Assessment: Pulmonary embolisms Syncopal episode covid 19 pneumoniarecovering from monoclonal antibiotic therapy Elevated troponins Elevated lactic acid Elevated liver enzymes Elevated d-dimer Hypo-magnesium Elevated inflammatory markers Generalized weakness Hypertension Hyperlipidemia GERD/reflux Heart failure unspecifiedawaiting echocardiogram Obesity of a BMI of 32.5 Plan: Pulmonary embolismscontinue high intensity heparin drip, obtain echocardiogram stat to the see extent of right heart strain, consult with pulmonary critical care for recommendations and treatment plan, consult with vascular for recommendations and treatment plan for pulmonary embolisms Syncopal episoderelated to diffuse pulmonary embolisms and right heart strainconsultation with cardiology for recommendations and treatment plan Covid 19received monoclonal antibiotic therapy in the pastmildly elevated inflammatory markers Hypertensioncontinue home medications Hyperlipidemiacontinue home medications Awaiting echocardiogram results to see the extent of right heart strain Continue medical management Continue to monitor vital signs and diagnostic testing Further recommendations and treatment plan to come based on patient's clinical condition Time with Patient: Greater than 30
--- NOTE | 2021-01-28 09:08 | P.GSCN ---
History of Present Illness Consult date: 01/28/21 Reason for Consult: Pulmonary embolism History of present illness: This is a pleasant 80-year-old white male who presented to the emergency dep artment with complaints of syncope/fall, weakness, and shortness of breath. He was recently diagnosed on 01/13/2021 with COVID-19 pneumonia treated with BAM, has a past medical history of hyperlipidemia, hypertension, GERD, and obesity. The patient noted on Monday he was starting to have some shortness of breath after going to the grocery store, and proceeded to get worse so he made an appointment an appointment his primary care provider in the office yesterday, but states they told him his oxygen level was good and sent him home. He became increasingly short of breath throughout the night with mild chest discomfort, he got up to use the bathroom became dizzy and fell, he made it to the couch where he had to rest for some time before he could get up to trying reach the phone. He called to his office and called his son who lives next door, he came to the house but patient was too weak to ambulate to get in the car and they called 911 and was brought to the emergency department by EMS. He currently states he still has some shortness of breath, he denies any chest pain, abdominal pain, fevers or chills. He denies any history of previous blood clots, clotting disorder, pain in his lower extremities. He states he always has some swelling in his lower extremities right greater than left. He is on 2 L of nasal cannula and oxygen saturation is 97-98%. He is however winded with conversation. As part of his diagnostic workup in the emergency department he had a CT angiogram of the chest within the impression stating the pulmonary arterial tree is well opacified with contrast. There are filling defects in the main left and right pulmonary arteries as well as an all lobar branches with a high clot burden. The RV/LV ratio is elevated measuring approximately 1.7 indicating right heart strain. There are scattered reticular infiltrates throughout both lungs consistent with viral or atypical pneumonitis such as COVID-19, less likely pulmonary fibrosis. Partial visualization of bilateral adrenal nodules measuring 1.8 cm in the left and 2.67 in the right. Consider follow-up multiphase contrast-enhanced imaging with MRI or CT when clinically feasible. He also underwent CT of the brain and C-spine showing moderate multilevel degenerative changes seen at the cervical spine. No acute fracture or traumatic subluxation is seen Review of Systems A 14 point review of systems was completed all pertinent positives and negatives as stated in the HPI Past Medical History Past Medical History: Heart Failure, Hyperlipidemia, Hypertension History of Any Multi-Drug Resistant Organisms: None Reported Additional Past Surgical History / Comment(s): L knee arthroscopy Past Anesthesia/Blood Transfusion Reactions: No Reported Reaction Past Psychological History: No Psychological Hx Reported Smoking Status: Never smoker Past Alcohol Use History: None Reported Past Drug Use History: None Reported Medications and Allergies Home Medications Medication Instructions Recorded Confirmed Type Celecoxib [CeleBREX] 200 mg PO BID 01/13/21 01/28/21 History Furosemide [Lasix] 20 mg PO DAILY PRN 01/13/21 01/28/21 History Latanoprost [Xalatan 0.005%] 1 drop BOTH EYES HS 01/13/21 01/28/21 History Multivitamins, Thera [Multivitamin 1 tab PO DAILY 01/13/21 01/28/21 History (formulary)] Omeprazole 20 mg PO DAILY 01/13/21 01/28/21 History Quinapril/Hydrochlorothiazide 1 tab PO DAILY 01/13/21 01/28/21 History [Quinapril-Hctz 20-25 mg Tab] Simvastatin [Zocor] 80 mg PO HS 01/13/21 01/28/21 History Azithromycin [Zithromax Z-pack (6 See Taper PO DIRECTED 01/28/21 01/28/21 History tabs)] Cefdinir 300 mg PO BID 01/28/21 01/28/21 History methylPREDNISolone [Medrol Dose See Taper PO DIRECTED 01/28/21 01/28/21 History Pack] Allergies Allergy/AdvReac Type Severity Reaction Status Date / Time No Known Allergies Allergy Verified 01/13/21 11:51 Surgical - Exam Vital Signs Temp Pulse Resp BP Pulse Ox 98.7 F 79 19 109/64 87 L 01/28/21 01:35 01/28/21 01:35 01/28/21 01:35 01/28/21 01:35 01/28/21 01:35 General appearance: The patient is alert, oriented, appears in no acute distress. Short of breath/winded with conversation. HET: Head is normocephalic and atraumatic. Pupils are equal and reactive. Oropharynx is clear without lesions. Neck: Supple without lymphadenopathy. Trachea midline. No jugular vein distention. Heart: S1 S2. Regular rate and rhythm. Chest: Normal chest wall expansion. Lungs: Clear to auscultation bilaterally. Abdomen: Soft, nontender, nondistended with bowel sounds. Extremities: Normal skin color and turgor. No cyanosis, rash, ulceration, clubbing. Bilateral +1-2 edema, right greater than left. Palpable bilateral +2 radial pulses. Neurological: No focal deficits. Strength and sensation are grossly intact. Results - Labs 01/28/21 02:02 01/28/21 02:02 Abnormal Lab Results - Last 24 Hours (Table) 01/28/21 01/28/21 01/28/21 Range/Units 02:02 02:02 02:02 RDW 18.1 H (11.5-15.5) % Neutrophils # 8.8 H (1.3-7.7) k/uL Lymphocytes # 0.6 L (1.0-4.8) k/uL PT (9.0-12.0) sec INR (<1.2) D-Dimer 15.49 H (<0.60) mg/L FEU Sodium 135 L (137-145) mmol/L Carbon Dioxide 18 L (22-30) mmol/L BUN 29 H (9-20) mg/dL Creatinine 1.35 H (0.66-1.25) mg/dL Glucose 246 H (74-99) mg/dL Plasma Lactic Acid Darrin (0.7-2.0) mmol/L Total Bilirubin 1.7 H (0.2-1.3) mg/dL AST 280 H (17-59) U/L ALT 188 H (4-49) U/L Alkaline Phosphatase 255 H (38-126) U/L Lactate Dehydrogenase 1271 H (313-618) U/L Troponin I (0.000-0.034) ng/mL C-Reactive Protein 22.7 H (<1.0) mg/dL Albumin 3.3 L (3.5-5.0) g/dL 01/28/21 01/28/21 01/28/21 Range/Units 02:02 03:40 03:40 RDW (11.5-15.5) % Neutrophils # (1.3-7.7) k/uL Lymphocytes # (1.0-4.8) k/uL PT 35.8 H (9.0-12.0) sec INR 3.7 H (<1.2) D-Dimer (<0.60) mg/L FEU Sodium (137-145) mmol/L Carbon Dioxide (22-30) mmol/L BUN (9-20) mg/dL Creatinine (0.66-1.25) mg/dL Glucose (74-99) mg/dL Plasma Lactic Acid Darrin 2.9 H* (0.7-2.0) mmol/L Total Bilirubin (0.2-1.3) mg/dL AST (17-59) U/L ALT (4-49) U/L Alkaline Phosphatase (38-126) U/L Lactate Dehydrogenase (313-618) U/L Troponin I 0.789 H* (0.000-0.034) ng/mL C-Reactive Protein (<1.0) mg/dL Albumin (3.5-5.0) g/dL Diabetes panel 01/28/21 Range/Units 02:02 Sodium 135 L (137-145) mmol/L Potassium 4.4 (3.5-5.1) mmol/L Chloride 102 (98-107) mmol/L Carbon Dioxide 18 L (22-30) mmol/L BUN 29 H (9-20) mg/dL Creatinine 1.35 H (0.66-1.25) mg/dL Glucose 246 H (74-99) mg/dL Calcium 9.0 (8.4-10.2) mg/dL AST 280 H (17-59) U/L ALT 188 H (4-49) U/L Alkaline Phosphatase 255 H (38-126) U/L Total Protein 6.3 (6.3-8.2) g/dL Albumin 3.3 L (3.5-5.0) g/dL Calcium panel 01/28/21 Range/Units 02:02 Calcium 9.0 (8.4-10.2) mg/dL Albumin 3.3 L (3.5-5.0) g/dL Pituitary panel 01/28/21 Range/Units 02:02 Sodium 135 L (137-145) mmol/L Potassium 4.4 (3.5-5.1) mmol/L Chloride 102 (98-107) mmol/L Carbon Dioxide 18 L (22-30) mmol/L BUN 29 H (9-20) mg/dL Creatinine 1.35 H (0.66-1.25) mg/dL Glucose 246 H (74-99) mg/dL Calcium 9.0 (8.4-10.2) mg/dL Adrenal panel 01/28/21 Range/Units 02:02 Sodium 135 L (137-145) mmol/L Potassium 4.4 (3.5-5.1) mmol/L Chloride 102 (98-107) mmol/L Carbon Dioxide 18 L (22-30) mmol/L BUN 29 H (9-20) mg/dL Creatinine 1.35 H (0.66-1.25) mg/dL Glucose 246 H (74-99) mg/dL Calcium 9.0 (8.4-10.2) mg/dL Total Bilirubin 1.7 H (0.2-1.3) mg/dL AST 280 H (17-59) U/L ALT 188 H (4-49) U/L Alkaline Phosphatase 255 H (38-126) U/L Total Protein 6.3 (6.3-8.2) g/dL Albumin 3.3 L (3.5-5.0) g/dL - Imaging Additional studies: CT angiogram of the chest within the impression stating the pulmonary arterial tree is well opacified with contrast. There are filling defects in the main left and right pulmonary arteries as well as an all lobar branches with a high clot burden. The RV/LV ratio is elevated measuring approximately 1.7 indicating right heart strain. There are scattered reticular infiltrates throughout both lungs consistent with viral or atypical pneumonitis such as COVID-19, less li josé miguel pulmonary fibrosis. Partial visualization of bilateral adrenal nodules measuring 1.8 cm in the left and 2.67 in the right. Consider follow-up multiphase contrast-enhanced imaging with MRI or CT when clinically feasible. He also underwent CT of the brain and C-spine showing moderate multilevel degenerative changes seen at the cervical spine. No acute fracture or traumatic subluxation is seen Assessment and Plan Assessment: 1. Pulmonary embolism with evidence of right heart strain according to CT angiogram of chest 2. COVID-19 pneumonitis 3. History of hypertension and hyperlipidemia Plan: 1. Continue symptomatic and supportive care 2. Echocardiogram reviewed with evidence of right heart strain 3. Continue IV heparin drip 4. Await recommendations by cardiology 5. Patient discussed with Dr. Anders, plan for EKOS procedure today Thank you for this consultation, we will continue to follow The impression and plan of care has been dictated as directed. Dr. Anders I performed a history and examination of this patient, discussed the same with the dictator. I agree with the dictator's note ,documented as a scribe. Any additional findings or plans will be noted.
[2021-01-28] MEDS: MULTIVITAMINS, THERA 1 EACH TAB PO SCH (09:19)
[2021-01-28] MEDS: lisinopriL 20 MG TAB PO SCH (09:19)
[2021-01-28] MEDS: PANTOPRAZOLE 40 MG TABLET PO SCH (09:20)
[2021-01-28] MEDS: hydroCHLOROthiazide 25 MG TAB PO SCH (09:20)
--- NOTE | 2021-01-28 09:56 | ECHOF ---
Referral Reason:PE MEASUREMENTS -------- HEIGHT: 182.9 cm WEIGHT: 108.9 kg BP: 110/73 RVIDd: 4.4 cm (< 3.3) IVSd: 1.6 cm (0.6 - 1.1) LVIDd: 3.4 cm (3.9 - 5.3) LVPWd: 1.6 cm (0.6 - 1.1) IVSs: 2.1 cm LVIDs: 2.2 cm LVPWs: 1.9 cm LAESV Index (A-L): 34.05 ml/m Ao Diam: 3.4 cm (2.0 - 3.7) AV Cusp: 2.4 cm (1.5 - 2.6) AR PHT: 418 ms RAP: 5.00 mmHg RVSP: 50.54 mmHg TAPSE: 21.26 mm FINDINGS -------- Sinus rhythm. This was a technically difficult study with suboptimal views. The left ventricular size is normal. There is moderate concentric left ventricular hypertrophy. O verall left ventricular systolic function is low-normal with, an EF between 50 - 55 %. The right ventricle is severely enlarged. RV Systolic Dysfunction McConnel's sign present which m ay be seen in PE. Clinical correlation recommended. LA is moderately dilated 34-39 ml/m2 The right atrium is mildly enlarged. 5.0mg of Lumason was utilized for enhancement of images Interatrial and interventricular septum intact. The aortic valve is trileaflet and appears structurally normal. There is mild aortic valve sclerosi s. There is mild aortic regurgitation. There is no evidence of aortic stenosis. There is trace to mild mitral regurgitation. Moderate tricuspid regurgitation present. There is moderate to severe pulmonary hypertension. The right ventricular systolic pressure, as measured by Doppler, is 50.54mmHg. There is no pulmonic regurgitation present. The aortic root size is normal. IVC Not well visulized. There is no pericardial effusion. CONCLUSIONS -------- 1. The left ventricular size is normal. 2. There is moderate concentric left ventricular hypertrophy. 3. Overall left ventricular systolic function is low-normal with, an EF between 50 - 55 %. 4. The right ventricle is severely enlarged. 5. RV Systolic Dysfunction 6. McConnel's sign present which may be seen in PE. Clinical correlation recommended. 7. LA is moderately dilated 34-39 ml/m2 8. The right atrium is mildly enlarged. 9. Interatrial and interventricular septum intact. 10. The aortic valve is trileaflet and appears structurally normal. 11. There is mild aortic valve sclerosis. 12. There is mild aortic regurgitation. 13. Moderate tricuspid regurgitation present. 14. There is moderate to severe pulmonary hypertension. 15. The right ventricular systolic pressure, as measured by Doppler, is 50.54mmHg. STAMP MOUNTER: Luiza Demarco RDCS
--- NOTE | 2021-01-28 10:07 | US ---
EXAMINATION TYPE: US venous doppler duplex LE DATE OF EXAM: 01/28/2021 9:57 AM COMPARISON: US 2013 CLINICAL HISTORY: B/L LE swelling, PE. Leg swelling, patient on blood thinners SIDE PERFORMED: Bilateral TECHNIQUE: The lower extremity deep venous system is examined utilizing real time linear array sonog linda with graded compression, doppler sonography and color-flow sonography. VESSELS IMAGED: Common Femoral Vein Deep Femoral Vein Greater Saphenous Vein proximally* Femoral Vein Popliteal Vein Proximal Calf Veins on the right side only (* superficial vessels) Right Leg: There is noncompressible partially occlusive deep venous thrombosis of the mid femoral ve in. There is noncompressible completely occlusive deep venous thrombosis of the distal femoral vein. Left Leg: There is normal flow, compressibility, and vascular waveforms. IMPRESSION: 1. Deep venous thrombosis of the right mid and distal femoral vein. 2. No left lower extremity DVT. Dr. Laura Farah discussed findings with Ina Toscano RN via the phone on 01/28/2021 10:03 AM at 10:03 EST, and results were acknowledged.
--- NOTE | 2021-01-28 10:55 | P.CRDCN ---
History of Present Illness History of present illness: This is a pleasant 80-year-old male past medical history of hyperlipidemia and hypertension. He used to see Dr. Pires in the office (in 2019). At that time he presented with shortness of breath, underwent Lexiscan stress test which was normal. He was transitioned to [id number]- hydroclorothiazide 12.5mg for his BP. We are being consulted for elevated troponin. He was recently diagnosed on 01/13/2021 with COVID-19 pneumonia. On Monday he was starting to have some shortness of breath after going to the grocery store. He went to his PCP appointment yesterday, he was told his oxygen level was good and sent him home. He became increasingly short of breath throughout the day, he went to the kitchen to take his Celebrex medication, he got up to use the bathroom became dizzy and fell. He said he we was down for less than a minute. He said he had to crawl on the floor, made it to the couch where he had to rest for some time before he could get up to trying reach the phone. He was finally able to catch his breath, make it to his office to his son called his son who lives next door, he came to the house and called 911 and was brought to the emergency department. Patient denies chest pain or palpitations. Denies symptoms of orthopnea or PND. He is a nonsmoker, nondiabetic. DIAGNOSTICS EKG reveals sinus tachycardia, heart rate 107, right bundle-branch block, poor R wave progression. Prior EKG 2019 in the office sinus rhythm with normal axis and normal intervals. Telemetry tracings indicate sinus mechanism heart rate [address] Chest bilateral PEs in the main left and right pulmonary arteries. RV/LV rat io was elevated indicating right heart strain. Scattered reticular infiltrates of both lungs consistent with thyroid difficulties or any such as COVID-19. Echocardiogram revealed left ventricular systolic function is low normal with an EF between 50-55%, right ventricle is severely enlarged, RV systolic dysfunction. No cobblestoning present which may be seen with PE. Left atrium is mildly dilated, right atrium is mildly enlarged, mild aortic regurgitation, moderate tricuspid regurgitation, moderate to severe pulmonary hypertension with RVSP 50.54 Venous Dopplers- DVT of the right mid and distal femoral vein. Negative deep DVT on the left lower extremity CT Brain - no acute fracture traumatic process, moderate amount of the bandage changes are seen in the cervical spine. Laboratory reviewed, troponin 0.70->1.4. BNP 2080 d-dimer 15.4, sodium 135, potassium 4.4, serum creatinine 1.35, BUN 29, lactate was 2.9, repeat 1.7, AST 280, PLT 188, alk phos 255, Current cardiac medications include [id number] 12.5mg, Lasix 20 mg when necessary. Simvastatin 80 mg nightly REVIEW OF SYSTEMS At the time of my exam: CONSTITUTIONAL: Denies fever or chills. CARDIOVASCULAR: +shortness of breath Denies chest pain, orthopnea, PND or palpitations. RESPIRATORY: + cough. GASTROINTESTINAL: Denies abdominal pain, diarrhea, constipation, nausea or vomiting. MUSCULOSKELETAL: Denies myalgias. NEUROLOGIC: Denies numbness, tingling, headacbe or weakness. ENDOCRINE: Denies fatigue, weight change, polydipsia or polyurina. GENITOURINARY: Denies burning, hematuria or urgency with micturation. HEMATOLOGIC: Denies history of anemia or bleeding. PHYSICAL EXAMINATION Blood pressure 137/64 heart rate 86 afebrile and maintaining oxygen saturation 96% on 2 L nasal cannula CONSTITUTIONAL: No apparent distress. HEENT: Head is normocephalic. Pupils are equal, round. Sclerae anicteric. Mucous membranes of the mouth are moist. No JVD. No carotid bruit. CHEST EXAMINATION: Lungs are diminshed bilaterally to auscultation. No chest wall tenderness is noted on palpation or with deep breathing. HEART EXAMINATION: Regular rate and rhythm. S1, S2 heard. No murmurs, gallops or rub. ABDOMEN: Soft, nontender. Positive bowel sounds. EXTREMITIES: 2+ peripheral pulses, no lower extremity edema and no calf tenderness. NEUROLOGIC EXAMINATION: Patient is awake, alert and oriented x3. ASSESSMENT Pulmonary embolism with evidence of right heart Right Femoral DVT Elevated troponin, most likely due to pulmonary embolism, hypoxia with oxygen supply demand mismatch COVID-19 History of Hypertension History of Hyperlipidemia PLAN 2D echocardiogram obtained and reviewed Continue heparin drip No further testing from cardiology perspective Plan for patient to go for EKOS this afternoon, we will continue to follow patient Nurse Practitioner note has been reviewed, I agree with a documented findings and plan of care. Patient was seen and examined. Past Medical History Past Medical History: Heart Failure, Hyperlipidemia, Hypertension History of Any Multi-Drug Resistant Organisms: None Reported Additional Past Surgical History / Comment(s): L knee arthroscopy Past Anesthesia/Blood Transfusion Reactions: No Reported Reaction Past Psychological History: No Psychological Hx Reported Smoking Status: Never smoker Past Alcohol Use History: None Reported Past Drug Use History: None Reported Medications and Allergies Home Medications Medication Instructions Recorded Confirmed Type Celecoxib [CeleBREX] 200 mg PO BID 01/13/21 01/28/21 History Furosemide [Lasix] 20 mg PO DAILY PRN 01/13/21 01/28/21 History Latanoprost [Xalatan 0.005%] 1 drop BOTH EYES HS 01/13/21 01/28/21 History Multivitamins, Thera [Multivitamin 1 tab PO DAILY 01/13/21 01/28/21 History (formulary)] Omeprazole 20 mg PO DAILY 01/13/21 01/28/21 History Quinapril/Hydrochlorothiazide 1 tab PO DAILY 01/13/21 01/28/21 History [Quinapril-Hctz 20-25 mg Tab] Simvastatin [Zocor] 80 mg PO HS 01/13/21 01/28/21 History Azithromycin [Zithromax Z-pack (6 See Taper PO DIRECTED 01/28/21 01/28/21 History tabs)] Cefdinir 300 mg PO BID 01/28/21 01/28/21 History methylPREDNISolone [Medrol Dose See Taper PO DIRECTED 01/28/21 01/28/21 History Pack] Allergies Allergy/AdvReac Type Severity Reaction Status Date / Time No Known Allergies Allergy Verified 01/13/21 11:51 Physical Exam Vitals: Vital Signs Temp Pulse Pulse Resp BP BP Pulse Ox 01/28/21 07:39 98.1 F 86 19 137/64 96 01/28/21 05:59 98.5 F 78 18 110/73 97 01/28/21 05:15 81 18 109/81 97 01/28/21 03:44 97 16 122/81 97 01/28/21 03:03 98 18 122/80 99 01/28/21 02:00 101 H 19 113/69 94 L 01/28/21 01:45 96 01/28/21 01:43 19 01/28/21 01:35 98.7 F 79 19 109/64 87 L Intake and Output 01/27/21 01/28/21 01/28/21 22:59 06:59 14:59 Other: Weight 108.862 kg 108.862 kg Results 01/28/21 02:02 01/28/21 02:02 Cardiac Enzymes 01/28/21 01/28/21 01/28/21 Range/Units 02:02 03:40 07:05 AST 280 H (17-59) U/L Lactate Dehydrogenase 1271 H (313-618) U/L Troponin I 0.789 H* 1.490 H* (0.000-0.034) ng/mL Coagulation 01/28/21 01/28/21 Range/Units 02:02 03:40 PT 11.7 35.8 H (9.0-12.0) sec APTT 23.2 (22.0-30.0) sec CBC 01/28/21 Range/Units 02:02 WBC 9.7 (3.8-10.6) k/uL RBC 5.06 (4.30-5.90) m/uL Hgb 13.6 (13.0-17.5) gm/dL Hct 41.1 (39.0-53.0) % Plt Count 359 D (150-450) k/uL Comprehensive Metabolic Panel 01/28/21 Range/Units 02:02 Sodium 135 L (137-145) mmol/L Potassium 4.4 (3.5-5.1) mmol/L Chloride 102 (98-107) mmol/L Carbon Dioxide 18 L (22-30) mmol/L BUN 29 H (9-20) mg/dL Creatinine 1.35 H (0.66-1.25) mg/dL Glucose 246 H (74-99) mg/dL Calcium 9.0 (8.4-10.2) mg/dL AST 280 H (17-59) U/L ALT 188 H (4-49) U/L Alkaline Phosphatase 255 H (38-126) U/L Total Protein 6.3 (6.3-8.2) g/dL Albumin 3.3 L (3.5-5.0) g/dL Current Medications Generic Name Dose Route Start Last Admin Trade Name Freq PRN Reason Stop Dose Admin Acetaminophen 650 mg 01/28/21 07:03 Acetaminophen Tab 325 Mg Tab PO Q6HR PRN Fever and/ or Mild Pain Atorvastatin Calcium 40 mg 01/28/21 21:00 Atorvastatin 40 Mg Tab PO HS KAREN Furosemide 20 mg 01/28/21 07:23 Furosemide 20 Mg Tab PO DAILY PRN Edema Heparin Sodium (Porcine) 0 unit 01/28/21 03:28 Heparin Sodium 1,000 Un/Ml (10ml Vl) IV PER PROTOCOL PRN Low PTT Protocol Hydrochlorothiazide 25 mg 01/28/21 09:00 01/28/21 09:20 Hydrochlorothiazide 25 Mg Tab PO 25 mg DAILY KAREN Administration Heparin Sodium/Sodium Chloride 250 mls @ 19.595 mls/hr 01/28/21 03:30 0 01/28/21 05:51 25,000 unit/ Sodium Chloride IV 18 units/kg/hr .[id number] KAREN 19.595 mls/hr Administration Protocol 18 UNITS/KG/HR Sodium Chloride 1,000 mls @ 20 mls/hr 01/28/21 07:00 Saline 0.9% IV .Q24H KAREN Latanoprost 1 drops 01/28/21 21:00 Latanoprost 0.005% Ophth Drops 2.5 Ml Btl BOTH EYES HS KAREN Lisinopril 20 mg 01/28/21 09:00 01/28/21 09:19 Lisinopril 20 Mg Tab PO 20 mg DAILY KAREN Administration Miscellaneous Information 1 each 01/28/21 07:03 Magnesium Replacement Protocol 1 Each Misc MISCELLANE DAILY PRN Per Protocol Protocol Miscellaneous Information 1 each 01/28/21 07:03 Potassium Replacement Protocol 1 Each Misc MISCELLANE DAILY PRN Per Protocol Protocol Morphine Sulfate 2 mg 01/28/21 07:04 Morphine Sulfate 2 Mg/Ml Syringe IVP Q4H PRN Pain/Discomfort Multivitamins 1 each 01/28/21 09:00 01/28/21 09:19 Multivitamins, Thera 1 Each Tab PO 1 each DAILY KAREN Administration Nitroglycerin 0.4 mg 01/28/21 03:43 Nitroglycerin Sl Tabs 0.4 Mg Tab SUBLINGUAL Q5M PRN Chest Pain Pantoprazole Sodium 40 mg 01/28/21 09:00 01/28/21 09:20 Pantoprazole 40 Mg Tablet PO 40 mg [id number] KAREN Administration Intake and Output 01/27/21 01/28/21 01/28/21 22:59 06:59 14:59 Other: Weight 108.862 kg 108.862 kg Patient Weight 01/29/21 06:59 Weight 108.862 kg 01/28/21 02:02 01/28/21 02:02
[2021-01-28 11:51] LABS: Partial Thromboplastin Time 87.1 sec (22.0-30.0)
[2021-01-28] MEDS: SODIUM CHLORIDE 0.9% 1,000 ML IV SCH ×3 (13:17→17:56)
[2021-01-28] MEDS ORDERED: HEPARIN SOD,PORK IN 0.45% NACL 25,000 UNIT in 0.45% NACL 1 250ML.BAG IV SCH ×2 (14:45)
[2021-01-28] MEDS ORDERED: IV FLUID CONTINUATION 700 ML IV ONE (15:06)
[2021-01-28] MEDS ORDERED: fentaNYL (PF) 50 MCG/ML 2 ML AMP IVP ONE (15:06)
[2021-01-28] MEDS ORDERED: MIDAZOLAM 2 MG/2 ML VIAL IVP ONE (15:06)
[2021-01-28] MEDS ORDERED: LIDOCAINE 1% INJ 10MG/ML (20 ML MDV) SQ ONE (15:08)
--- NOTE | 2021-01-28 15:44 | P.CNPUL ---
History of Present Illness Consult date: 01/28/21 Reason for consult: dyspnea, cough Chief complaint: Requested consult for hypoxemia with COVID-19 pneumonia History of present illness: Patient seen eval reexamined on third floor, patient admitted to hospital with ongoing progressive dizziness, patient was brought in to emergency department by EMS, patient is status post treatment with monoclonal antibody, for last 24-48 hours patient has been more short of breath than usual and progressively become weaker due to severity or shortness of breath along with mid sternal chest pain decided to come into emergency department, computed tomography scan of the chest significant for bilateral pulmonary embolism with CT evidence of right ventricular strain, patient has pulmonary parenchymal radicular inflammation consistent with COVID-19 pneumonia, patient has been started on IV heparin as per protocol, the echocardiogram revealed ejection fraction of 55% with RV sys tolic dysfunction, ejection fraction of 50-55%, LA appears to be moderately dilated, RV mildly enlarged, patient has been evaluated by vascular surgery, being planned for EKOS procedure later on today by vascular surgery, patient also has a duplex ultrasound lower extremity positive for right DVT past medical history history is significant for osteoarthritis GERD hypertension hypertensive cardiovascular disease and dyslipidemia, on arrival he was noted to have desaturation hypoxia sats were only 87% at room air however supplemental oxygen increase to 96-97%, BUN/creatinine elevated 29 and 1.35, liver enzymes elevated AST is 218 ALT is 188, alk phos 255, LDH was over 1200, C-reactive protein 22, lactic acid 2.9, Review of Systems All systems: negative Past Medical History Past Medical History: Heart Failure, Hyperlipidemia, Hypertension History of Any Multi-Drug Resistant Organisms: None Reported Additional Past Surgical History / Comment(s): L knee arthroscopy Past Anesthesia/Blood Transfusion Reactions: No Reported Reaction Past Psychological History: No Psychological Hx Reported Smoking Status: Never smoker Past Alcohol Use History: None Reported Past Drug Use History: None Reported Medications and Allergies Home Medications Medication Instructions Recorded Confirmed Type Celecoxib [CeleBREX] 200 mg PO BID 01/13/21 01/28/21 History Furosemide [Lasix] 20 mg PO DAILY PRN 01/13/21 01/28/21 History Latanoprost [Xalatan 0.005%] 1 drop BOTH EYES HS 01/13/21 01/28/21 History Multivitamins, Thera [Multivitamin 1 tab PO DAILY 01/13/21 01/28/21 History (formulary)] Omeprazole 20 mg PO DAILY 01/13/21 01/28/21 History Quinapril/Hydrochlorothiazide 1 tab PO DAILY 01/13/21 01/28/21 History [Quinapril-Hctz 20-25 mg Tab] Simvastatin [Zocor] 80 mg PO HS 01/13/21 01/28/21 History Azithromycin [Zithromax Z-pack (6 See Taper PO DIRECTED 01/28/21 01/28/21 History tabs)] Cefdinir 300 mg PO BID 01/28/21 01/28/21 History methylPREDNISolone [Medrol Dose See Taper PO DIRECTED 01/28/21 01/28/21 History Pack] Allergies Allergy/AdvReac Type Severity Reaction Status Date / Time No Known Allergies Allergy Verified 01/13/21 11:51 Physical Exam Vitals: Vital Signs Temp Pulse Pulse Resp BP BP Pulse Ox 01/28/21 14:00 84 22 01/28/21 10:53 97.0 F L 84 22 143/79 94 L 01/28/21 10:26 22 01/28/21 09:53 97.1 F L 74 16 128/80 95 01/28/21 08:00 86 22 01/28/21 07:39 98.1 F 86 19 137/64 96 01/28/21 05:59 98.5 F 78 18 110/73 97 01/28/21 05:15 81 18 109/81 97 01/28/21 03:44 97 16 122/81 97 01/28/21 03:03 98 18 122/80 99 01/28/21 02:00 101 H 19 113/69 94 L 01/28/21 01:45 96 01/28/21 01:43 19 01/28/21 01:35 98.7 F 79 19 109/64 87 L Intake and Output 01/28/21 01/28/21 01/28/21 06:59 14:59 22:59 Intake Total 1194.39 Balance 1194.39 Intake: Intake, IV Titration 434.39 Amount Heparin Sod,Pork in 0.45% 142.39 NaCl 25,000 unit In 0.45 % NaCl 1 250ml.bag @ 18 UNITS/KG/HR 19.595 mls/hr IV .[id number] [facility] Rx#: [id number] Sodium Chloride 0.9% 1, 152 000 ml @ 100 mls/hr IV . Q10H KAREN Rx#:[id number] Sodium Chloride 0.9% 1, 140 000 ml @ 35 mls/hr IV . Q24H KAREN Rx#:[id number] Oral 760 Other: Weight 108.862 kg 110.2 kg - Constitutional General appearance: average body habitus, disheveled, mild distress - EENT Eyes: PERRLA Ears: bilateral: normal - Neck Neck: normal ROM Carotids: bilateral: upstroke normal Thyroid: bilateral: normal size - Respiratory Respiratory: bilateral: diminished - Cardiovascular Rhythm: regular Heart sounds: normal: S1, S2 - Neurologic Neurologic: CNII-XII intact - Musculoskeletal Musculoskeletal: generalized weakness, strength equal bilaterally - Psychiatric Psychiatric: A&O x's 3, appropriate affect, intact judgment & insight Results - Laboratory Findings CBC and BMP: 01/28/21 02:02 01/28/21 02:02 PT/INR, D-dimer PT 35.8 sec (9.0-12.0) H 01/28/21 03:40 INR 3.7 (<1.2) H 01/28/21 03:40 D-Dimer 15.49 mg/L FEU (<0.60) H 01/28/21 02:02 Abnormal lab findings: Abnormal Labs 01/28/21 01/28/21 01/28/21 02:02 02:02 02:02 RDW 18.1 H Neutrophils # 8.8 H Lymphocytes # 0.6 L PT INR APTT Fibrinogen D-Dimer 15.49 H Sodium 135 L Carbon Dioxide 18 L BUN 29 H Creatinine 1.35 H Glucose 246 H Plasma Lactic Acid Darrin Total Bilirubin 1.7 H AST 280 H ALT 188 H Alkaline Phosphatase 255 H Lactate Dehydrogenase 1271 H Troponin I C-Reactive Protein 22.7 H Albumin 3.3 L 01/28/21 01/28/21 01/28/21 02:02 03:40 03:40 RDW Neutrophils # Lymphocytes # PT 35.8 H INR 3.7 H APTT Fibrinogen D-Dimer Sodium Carbon Dioxide BUN Creatinine Glucose Plasma Lactic Acid Darrin 2.9 H* Total Bilirubin AST ALT Alkaline Phosphatase Lactate Dehydrogenase Troponin I 0.789 H* C-Reactive Protein Albumin 01/28/21 01/28/21 01/28/21 07:05 10:24 10:38 RDW Neutrophils # Lymphocytes # PT INR APTT 87.1 H Fibrinogen 780 H D-Dimer Sodium Carbon Dioxide BUN Creatinine Glucose Plasma Lactic Acid Darrin Total Bilirubin AST ALT Alkaline Phosphatase Lactate Dehydrogenase Troponin I 1.490 H* 1.420 H* C-Reactive Protein Albumin - Diagnostic Findings Chest x-ray: report reviewed, image reviewed CT scan - chest: report reviewed, image reviewed (Echocardiogram finding reviewed) Assessment and Plan Assessment: Massive pulmonary embolism with right ventricular strain Right lower extremity deep venous thrombosis [place] 19 pneumonia Acute hypoxic respiratory failure due to combination of COVID-19 pneumonia and thromboembolism with DVT PE Hypertension hypertensive cardiovascular disease Elevated liver enzymes 4-6 times normal limit Plan: Continue heparin Agree with Ekos transcatheter direct infusion therapy of alteplase by vascular surgery to decrease tumor burden IV Decadron Supplement Supplemental oxygen Patient is not a candidate for IV Remdesivir therapy due to significantly elevated liver enzymes Further plan of care as per clinical response of the patient Time with Patient: Greater than 30
[2021-01-28] MEDS ORDERED: ALTEPLASE 10 MG in SODIUM CHLORIDE 0.9% 100 ML IV ONE ×4 (16:00)
--- NOTE | 2021-01-28 16:01 | P.OP ---
Date of Procedure: 01/28/21 Description of Procedure: Preoperative diagnosis: Submassive bilateral pulmonary emboli Postoperative diagnosis: Same Procedure: #1 ultrasound-guided right common femoral vein access of central venous catheters times-2 #2 bilateral selective pulmonary angiogram #3 Initiation of pulmonary pharmacal mechanical thrombolysis with EKOS #4 Moderate conscious sedation x [40 minutes] Surgeon: Nova Anders D.O. EBL: Less than 10 mL IV fluids: See records Urine output: See records Drains: None Complications: None immediately apparent Condition: Stable to ICU Operative indication and findings: [The patient is a 80-year-old male who had a diagnosis of Covid a few weeks back and subsequently was released to go leave his house. Once he was out in about he was having issues with increasing shortness of breath and reportedly did pass out as well therefore he presented to the ER. Workup and evaluation he was found to have submassive bilateral pulmonary embolisms. Was recommended to undergo thrombolysis. Risks and benefits were discussed. He seemingly understood and was willing to proceed as such.] Procedure in detail: [The patient was taken to the radiology suite and placed in supine position. Bilateral groins are prepped and draped in usual sterile fashion. A preprocedure timeout was performed, all parties were in agreement. The right common femoral vein was identified and found to be compressible without any evidence of visible thrombus. The skin overlying was anesthetized 1% lidocaine plain. A multipurpose needle was used and the vein was accessed and a wire was placed. This was done again through a separate access site. 2, 6-Uzbek sheaths were placed. Using catheters and wires the right and left pulmonary arteries were accessed. Pulmonic angiograms were performed confirming positioning. An EKOS ultrasonic pharmacomechanical infusion catheter was placed and confirmed appropriate positioning within the pulmonary arteries. The catheters were hooked up to appropriate fluid infusions for the [place] II protocol for submassive pulmonary emboli. The sheaths were sutured in place. Dressing was placed. The patient was transferred back to ICU in stable condition having tolerated the procedure well.
[2021-01-28] MEDS ORDERED: ONDANSETRON 4 MG/2 ML VIAL IVP PRN (16:02)
[2021-01-28] MEDS ORDERED: IOPAMIDOL-250 50ML BTL IV ONE (16:06)
[2021-01-28 16:32] LABS: Glucose,Whole Blood 111 mg/dL (75-99)
--- NOTE | 2021-01-28 17:23 | IR ---
EXAMINATION TYPE: IR transcath infusion therapy DATE OF EXAM: 01/28/2021 CLINICAL HISTORY: IR transcatheter infusion therapy TECHNIQUE: Fluoroscopy. COMPARISON: None. FINDINGS: Fluoroscopic guidance was provided during procedure for performing physician. A total of 7.6 minutes of fluoroscopic time was utilized during the procedure and 172 spot images was acquired. IMPRESSION: As Above.
[2021-01-28] MEDS: DEXAMETHASONE SOD PHOSPHATE 10 MG/ML 1 ML VIAL IV SCH (18:16)
[2021-01-28 19:15] LABS: Partial Thromboplastin Time 28.9 sec (22.0-30.0)
[2021-01-28 19:21] LABS: Anisocytosis Slight; Basophils % (A) 0 %; Eosinophils # (A) 0.1 k/uL (0-0.7); Eosinophils % (A) 1 %; HCT 41.7 % (39.0-53.0); HGB 13.2 gm/dL (13.0-17.5); Lymphocytes # (A) 1.6 k/uL (1.0-4.8); Lymphocytes % (A) 9 %; MCH 25.8 pg (25.0-35.0); MCHC 31.7 g/dL (31.0-37.0); MCV 81.4 fL (80.0-100.0); Microcytosis Slight; Monocytes # (A) 1.1 k/uL (0-1.0); Monocytes % (A) 6 %; Neutrophils # (A) 14.5 k/uL (1.3-7.7); Neutrophils % (A) 83 %; Platelet Count 351 k/uL (150-450); RBC 5.12 m/uL (4.30-5.90); RDW 18.2 % (11.5-15.5); WBC 17.6 k/uL (3.8-10.6)
[2021-01-28] MEDS: ATORVASTATIN 40 MG TAB PO SCH (21:23)
[2021-01-28] MEDS: LATANOPROST 0.005% OPHTH DROPS 2.5 ML BTL BOTH EYES SCH (21:23)
[2021-01-29 00:55] LABS: Anisocytosis Slight; Basophils % (A) 0 %; Eosinophils # (A) 0.1 k/uL (0-0.7); Eosinophils % (A) 0 %; HCT 38.6 % (39.0-53.0); HGB 12.2 gm/dL (13.0-17.5); Lymphocytes # (A) 1.5 k/uL (1.0-4.8); Lymphocytes % (A) 11 %; MCH 25.7 pg (25.0-35.0); MCHC 31.6 g/dL (31.0-37.0); MCV 81.3 fL (80.0-100.0); Mean Platelet Volume 8.3; Microcytosis Slight; Monocytes % (A) 7 %; Neutrophils % (A) 80 %; Platelet Count 374 k/uL (150-450); RBC 4.75 m/uL (4.30-5.90); RDW 18.4 % (11.5-15.5); WBC 13.8 k/uL (3.8-10.6)
[2021-01-29 01:03] LABS: Partial Thromboplastin Time 22.9 sec (22.0-30.0)
[2021-01-29 05:17] LABS: Anisocytosis Slight; Basophils % (A) 0 %; Eosinophils # (A) 0.1 k/uL (0-0.7); Eosinophils % (A) 1 %; HCT 38.9 % (39.0-53.0); HGB 12.5 gm/dL (13.0-17.5); Lymphocytes # (A) 1.7 k/uL (1.0-4.8); Lymphocytes % (A) 13 %; MCH 26.2 pg (25.0-35.0); MCHC 32.1 g/dL (31.0-37.0); MCV 81.7 fL (80.0-100.0); Mean Platelet Volume 7.9; Microcytosis Slight; Monocytes % (A) 8 %; Neutrophils # (A) 9.8 k/uL (1.3-7.7); Neutrophils % (A) 77 %; Platelet Count 379 k/uL (150-450); RBC 4.76 m/uL (4.30-5.90); RDW 18.4 % (11.5-15.5); WBC 12.8 k/uL (3.8-10.6)
[2021-01-29] MEDS: HEPARIN SOD,PORK IN 0.45% NACL 25,000 UNIT in 0.45% NACL 1 250ML.BAG IV SCH (05:22)
[2021-01-29 05:26] LABS: Albumin 2.8 g/dL (3.5-5.0); Calcium 8.8 mg/dL (8.4-10.2); Magnesium 2.2 mg/dL (1.6-2.3); Potassium 4.7 mmol/L (3.5-5.1); Total Bilirubin 1.2 mg/dL (0.2-1.3); Total Protein 5.7 g/dL (6.3-8.2)
[2021-01-29] MEDS: PANTOPRAZOLE 40 MG TABLET PO SCH (06:24)
[2021-01-29] MEDS ORDERED: ATROPINE SULFATE 0.1 MG/ML 10ML SYRINGE ONE (08:05)
[2021-01-29] MEDS: DEXAMETHASONE SOD PHOSPHATE 10 MG/ML 1 ML VIAL IV SCH (09:07)
[2021-01-29] MEDS: lisinopriL 20 MG TAB PO SCH (09:08)
[2021-01-29] MEDS: MULTIVITAMINS, THERA 1 EACH TAB PO SCH (09:08)
--- NOTE | 2021-01-29 09:20 | P.PN ---
Subjective Progress Note Date: 01/29/21 Principal diagnosis: Massive pulmonary embolism with right ventricular strain status post catheter directed TPA by vascular surgery Right lower extremity deep venous thrombosis Covert 19 pneumonia Acute hypoxic respiratory failure due to combination of COVID-19 pneumonia and thromboembolism with DVT PE Hypertension hypertensive cardiovascular disease Elevated liver enzymes 4-6 times normal limit 01/29/2021, patient seen eval examined during the rounds labs reviewed medi cations reviewed care plan discussed with the staff at length, patient remains on 2 L breathing comfortably denies any chest pain uncomfortable due to laying supine, oxygen saturation is 93% on 2 L, hemodynamic status stable slightly tachypneic with respiratory rate of the 26, labs significant for leukocytosis of 12,800 which is improving, hemoglobin stable 12.5, platelets are also stable 3 79,000, BUN/creatinine 43 and 1.28, 50 slightly improved, Patient seen eval reexamined on third floor, patient admitted to hospital with ongoing progressive dizziness, patient was brought in to emergency department by EMS, patient is status post treatment with monoclonal antibody, for last 24-48 hours patient has been more short of breath than usual and progressively become weaker due to severity or shortness of breath along with mid sternal chest pain decided to come into emergency department, computed tomography scan of the chest significant for bilateral pulmonary embolism with CT evidence of right ventricular strain, patient has pulmonary parenchymal radicular inflammation consistent with COVID-19 pneumonia, patient has been started on IV heparin as per protocol, the echocardiogram revealed ejection fraction of 55% with RV systolic dysfunction, ejection fraction of 50-55%, LA appears to be moderately dilated, RV mildly enlarged, patient has been evaluated by vascular surgery, being planned for EKOS procedure later on today by vascular surgery, patient also has a duplex ultrasound lower extremity positive for right DVT past medical history history is significant for osteoarthritis GERD hypertension hypertensive cardiovascular disease and dyslipidemia, on arrival he was noted to have desaturation hypoxia sats were only 87% at room air however supplemental oxygen increase to 96-97%, BUN/creatinine elevated 29 and 1.35, liver enzymes elevated AST is 218 ALT is 188, alk phos 255, LDH was over 1200, C-reactive protein 22, lactic acid 2.9, Objective - Vital Signs Vital signs: Vital Signs Temp 98.5 F 01/29/21 04:00 Pulse 79 01/29/21 08:00 Resp 26 H 01/29/21 08:00 BP 126/79 01/29/21 08:00 Pulse Ox 93 L 01/29/21 08:00 Intake & Output 01/28/21 01/29/21 01/29/21 18:59 06:59 18:59 Intake Total 1554.39 177.61 72.125 Output Total 320 435 105 Balance 1234.39 -257.39 -32.875 Weight 110.2 kg 111.1 kg Intake: IV 50 Intake, IV Titration 504.39 177.61 72.125 Amount Alteplase 10 mg In Sodium 35 35 Chloride 0.9% 100 ml @ 1 MG/HR 10 mls/hr IV .Q10H [facility] Rx#:[id number] Heparin Sod,Pork in 0.45% 142.39 107.61 NaCl 25,000 unit In 0.45 % NaCl 1 250ml.bag @ 18 UNITS/KG/HR 19.595 mls/hr IV .[id number] [facility] Rx#: [id number] Heparin Sod,Pork in 0.45% 36.083 NaCl 25,000 unit In 0.45 % NaCl 1 250ml.bag @ 2.5 mls/hr IV .Q24H [facility] Rx#: [id number] Heparin Sod,Pork in 0.45% 36.042 NaCl 25,000 unit In 0.45 % NaCl 1 250ml.bag @ 2.5 mls/hr IV .Q24H [facility] Rx#: [id number] Sodium Chloride 0.9% 1, 152 000 ml @ 100 mls/hr IV . Q10H [facility] Rx#:[id number] Sodium Chloride 0.9% 1, 175 35 000 ml @ 35 mls/hr IV . Q24H [facility] Rx#:[id number] Oral 1000 Output: Urine 320 435 105 Other: Voiding Method Indwelling Catheter Indwelling Catheter Indwelling Catheter - Exam - Constitutional General appearance: average body habitus, disheveled, mild distress - EENT Eyes: PERRLA Ears: bilateral: normal - Neck Neck: normal ROM Carotids: bilateral: upstroke normal Thyroid: bilateral: normal size - Respiratory Respiratory: bilateral: diminished - Cardiovascular Rhythm: regular Heart sounds: normal: S1, S2 - Neurologic Neurologic: CNII-XII intact - Musculoskeletal Musculoskeletal: generalized weakness, strength equal bilaterally - Psychiatric Psychiatric: A&O x's 3, appropriate affect, intact judgment & insight - Labs CBC & Chem 7: 01/29/21 04:45 01/29/21 04:45 Labs: Abnormal Lab Results - Last 24 Hours (Table) 01/28/21 01/28/21 01/28/21 Range/Units 10:24 10:38 16:30 WBC (3.8-10.6) k/uL Hgb (13.0-17.5) gm/dL Hct (39.0-53.0) % RDW (11.5-15.5) % Neutrophils # (1.3-7.7) k/uL Monocytes # (0-1.0) k/uL APTT 87.1 H (22.0-30.0) sec Fibrinogen 780 H (200-500) mg/dL Chloride (98-107) mmol/L BUN (9-20) mg/dL Creatinine (0.66-1.25) mg/dL Glucose (74-99) mg/dL POC Glucose (mg/dL) 111 H (75-99) mg/dL AST (17-59) U/L ALT (4-49) U/L Alkaline Phosphatase (38-126) U/L Troponin I 1.420 H* (0.000-0.034) ng/mL Total Protein (6.3-8.2) g/dL Albumin (3.5-5.0) g/dL HDL Cholesterol (40-60) mg/dL 01/28/21 01/28/21 01/29/21 Range/Units 18:19 18:19 00:15 WBC 17.6 H (3.8-10.6) k/uL Hgb (13.0-17.5) gm/dL Hct (39.0-53.0) % RDW 18.2 H (11.5-15.5) % Neutrophils # 14.5 H (1.3-7.7) k/uL Monocytes # 1.1 H (0-1.0) k/uL APTT (22.0-30.0) sec Fibrinogen 733 H 620 H (200-500) mg/dL Chloride (98-107) mmol/L BUN (9-20) mg/dL Creatinine (0.66-1.25) mg/dL Glucose (74-99) mg/dL POC Glucose (mg/dL) (75-99) mg/dL AST (17-59) U/L ALT (4-49) U/L Alkaline Phosphatase (38-126) U/L Troponin I (0.000-0.034) ng/mL Total Protein (6.3-8.2) g/dL Albumin (3.5-5.0) g/dL HDL Cholesterol (40-60) mg/dL 01/29/21 01/29/21 01/29/21 Range/Units 00:15 04:45 04:45 WBC 13.8 H 12.8 H (3.8-10.6) k/uL Hgb 12.2 L 12.5 L (13.0-17.5) gm/dL Hct 38.6 L 38.9 L (39.0-53.0) % RDW 18.4 H 18.4 H (11.5-15.5) % Neutrophils # 11.0 H 9.8 H (1.3-7.7) k/uL Monocytes # (0-1.0) k/uL APTT (22.0-30.0) sec Fibrinogen (200-500) mg/dL Chloride 109 H (98-107) mmol/L BUN 43 H (9-20) mg/dL Creatinine 1.28 H (0.66-1.25) mg/dL Glucose 119 H (74-99) mg/dL POC Glucose (mg/dL) (75-99) mg/dL AST 145 H (17-59) U/L ALT 166 H (4-49) U/L Alkaline Phosphatase 190 H (38-126) U/L Troponin I (0.000-0.034) ng/mL Total Protein 5.7 L (6.3-8.2) g/dL Albumin 2.8 L (3.5-5.0) g/dL HDL Cholesterol 23 L (40-60) mg/dL 01/29/21 Range/Units 04:45 WBC (3.8-10.6) k/uL Hgb (13.0-17.5) gm/dL Hct (39.0-53.0) % RDW (11.5-15.5) % Neutrophils # (1.3-7.7) k/uL Monocytes # (0-1.0) k/uL APTT (22.0-30.0) sec Fibrinogen 655 H (200-500) mg/dL Chloride (98-107) mmol/L BUN (9-20) mg/dL Creatinine (0.66-1.25) mg/dL Glucose (74-99) mg/dL POC Glucose (mg/dL) (75-99) mg/dL AST (17-59) U/L ALT (4-49) U/L Alkaline Phosphatase (38-126) U/L Troponin I (0.000-0.034) ng/mL Total Protein (6.3-8.2) g/dL Albumin (3.5-5.0) g/dL HDL Cholesterol (40-60) mg/dL Microbiology - Last 24 Hours (Table) 01/28/21 02:02 Blood Culture - Preliminary Blood No Growth after 24 hours Assessment and Plan Assessment: Massive pulmonary embolism with right ventricular strain status post catheter dissected TPA on January 28 Right lower extremity deep venous thrombosis Covid 19 pneumonia Acute hypoxic respiratory failure due to combination of COVID-19 pneumonia and thromboembolism with DVT PE Hypertension hypertensive cardiovascular disease Acute on chronic kidney disease Elevated liver enzymes 4-6 times normal limit Plan: Continue heparin, agree with switching it to oral diuretic anticoagulant Status post Ekos transcatheter direct infusion therapy of alteplase by vascular surgery to decrease tumor burden IV Decadron Supplement Supplemental oxygen Patient is not a candidate for IV Remdesivir therapy due to significantly elevated liver enzymes Monitor renal functions closely Further plan of care as per clinical response of the patient Time with Patient: Greater than 30
[2021-01-29] MEDS: hydroCHLOROthiazide 25 MG TAB PO SCH (09:47)
[2021-01-29] MEDS: APIXABAN 5 MG TAB PO SCH ×2 (09:48→20:07)
[2021-01-29 10:33] LABS: INR 1.1 (<1.2); Prothrombin Time 11.2 sec (9.0-12.0)
--- NOTE | 2021-01-29 10:50 | P.PN ---
Subjective History of present illness: This is a pleasant 80-year-old male past medical history of hyperlipidemia and hypertension. He used to see Dr. Pires in the office (in 2019). At that time he presented with shortness of breath, underwent Lexiscan stress test which was normal. He was transitioned to [id number] roclorothiazide 12.5mg for his BP. We are being consulted for elevated troponin. He was recently diagnosed on 01/13/2021 with COVID-19 pneumonia. On Monday he was starting to have some shortness of breath after going to the grocery store. He went to his PCP appointment yesterday, he was told his oxygen level was good and sent him home. He became increasingly short of breath throughout the day, he went to the kitchen to take his Celebrex medication, he got up to use the bathroom became dizzy and fell. He said he we was down for less than a minute. He said he had to crawl on the floor, made it to the couch where he had to rest for some time before he could get up to trying reach the phone. He was finally able to catch his breath, make it to his office to his son called his son who lives next door, he came to the house and called 911 and was brought to the emergency department. Patient denies chest pain or palpitations. Denies symptoms of orthopnea or PND. He is a nonsmoker, nondiabetic. 01/29/2021 Pt underwent EKOS placement yesterday per Dr. Anders. He is seen and examined resting comfortably in bed in no acute distress. Blood pressure 132/72 heart rate 66 afebrile and maintaining oxygen saturation on nasal cannula. Laboratory data reviewed, WBC 12.8, hemoglobin 12.5, platelets 379, fibrinogen 619, sodium 140, potassium 4.7, creatinine 1.28, LDL 79 and HDL 23. PHYSICAL EXAMINATION CONSTITUTIONAL: No apparent distress. HEENT: Head is normocephalic. Pupils are equal, round. Sclerae anicteric. Mucous membranes of the mouth are moist. No JVD. No carotid bruit. CHEST EXAMINATION: Lungs are diminshed bilaterally to auscultation. No chest wall tenderness is noted on palpation or with deep breathing. HEART EXAMINATION: Regular rate and rhythm. S1, S2 heard. No murmurs, gallops or rub. EXTREMITIES: 2+ peripheral pulses, no lower extremity edema and no calf tenderness. EKOS catheters in place. ASSESSMENT Pulmonary embolism with evidence of right heart Right Femoral DVT Elevated troponin, most likely due to pulmonary embolism, hypoxia with oxygen supply demand mismatch COVID-19 Hypertension Hyperlipidemia PLAN Continue current medical regimen Repeat limited echo tomorrow to assess RV function and overload. Further recommendations to follow based on clinical course. Nurse Practitioner note has been reviewed, I agree with a documented findings and plan of care. Patient was seen and examined. Objective - Vital Signs Vital signs: Vital Signs Temp 98.5 F 01/29/21 04:00 Pulse 66 01/29/21 10:00 Resp 30 H 01/29/21 10:00 BP 132/72 01/29/21 10:00 Pulse Ox 94 L 01/29/21 10:00 Intake & Output 01/28/21 01/29/21 01/29/21 18:59 06:59 18:59 Intake Total 1554.39 177.61 172.125 Output Total 320 435 330 Balance 1234.39 -257.39 -157.875 Weight 110.2 kg 111.1 kg Intake: IV 50 Intake, IV Titration 504.39 177.61 72.125 Amount Alteplase 10 mg In Sodium 35 35 Chloride 0.9% 100 ml @ 1 MG/HR 10 mls/hr IV .Q10H [facility] Rx#:[id number] Heparin Sod,Pork in 0.45% 142.39 107.61 NaCl 25,000 unit In 0.45 % NaCl 1 250ml.bag @ 18 UNITS/KG/HR 19.595 mls/hr IV .[id number] [facility] Rx#: [id number] Heparin Sod,Pork in 0.45% 36.083 NaCl 25,000 unit In 0.45 % NaCl 1 250ml.bag @ 2.5 mls/hr IV .Q24H [facility] Rx#: [id number] Heparin Sod,Pork in 0.45% 36.042 NaCl 25,000 unit In 0.45 % NaCl 1 250ml.bag @ 2.5 mls/hr IV .Q24H [facility] Rx#: [id number] Sodium Chloride 0.9% 1, 152 000 ml @ 100 mls/hr IV . Q10H [facility] Rx#:[id number] Sodium Chloride 0.9% 1, 175 35 000 ml @ 35 mls/hr IV . Q24H [facility] Rx#:[id number] Oral 1000 100 Output: Urine 320 435 330 Other: Voiding Method Indwelling Catheter Indwelling Catheter Indwelling Catheter - Labs CBC & Chem 7: 01/29/21 04:45 01/29/21 04:45 Labs: Abnormal Lab Results - Last 24 Hours (Table) 01/28/21 01/28/21 01/28/21 Range/Units 10:24 10:38 16:30 WBC (3.8-10.6) k/uL Hgb (13.0-17.5) gm/dL Hct (39.0-53.0) % RDW (11.5-15.5) % Neutrophils # (1.3-7.7) k/uL Monocytes # (0-1.0) k/uL APTT 87.1 H (22.0-30.0) sec Fibrinogen 780 H (200-500) mg/dL Chloride (98-107) mmol/L BUN (9-20) mg/dL Creatinine (0.66-1.25) mg/dL Glucose (74-99) mg/dL POC Glucose (mg/dL) 111 H (75-99) mg/dL AST (17-59) U/L ALT (4-49) U/L Alkaline Phosphatase (38-126) U/L Troponin I 1.420 H* (0.000-0.034) ng/mL Total Protein (6.3-8.2) g/dL Albumin (3.5-5.0) g/dL HDL Cholesterol (40-60) mg/dL 01/28/21 01/28/21 01/29/21 Range/Units 18:19 18:19 00:15 WBC 17.6 H (3.8-10.6) k/uL Hgb (13.0-17.5) gm/dL Hct (39.0-53.0) % RDW 18.2 H (11.5-15.5) % Neutrophils # 14.5 H (1.3-7.7) k/uL Monocytes # 1.1 H (0-1.0) k/uL APTT (22.0-30.0) sec Fibrinogen 733 H 620 H (200-500) mg/dL Chloride (98-107) mmol/L BUN (9-20) mg/dL Creatinine (0.66-1.25) mg/dL Glucose (74-99) mg/dL POC Glucose (mg/dL) (75-99) mg/dL AST (17-59) U/L ALT (4-49) U/L Alkaline Phosphatase (38-126) U/L Troponin I (0.000-0.034) ng/mL Total Protein (6.3-8.2) g/dL Albumin (3.5-5.0) g/dL HDL Cholesterol (40-60) mg/dL 01/29/21 01/29/21 01/29/21 Range/Units 00:15 04:45 04:45 WBC 13.8 H 12.8 H (3.8-10.6) k/uL Hgb 12.2 L 12.5 L (13.0-17.5) gm/dL Hct 38.6 L 38.9 L (39.0-53.0) % RDW 18.4 H 18.4 H (11.5-15.5) % Neutrophils # 11.0 H 9.8 H (1.3-7.7) k/uL Monocytes # (0-1.0) k/uL APTT (22.0-30.0) sec Fibrinogen (200-500) mg/dL Chloride 109 H (98-107) mmol/L BUN 43 H (9-20) mg/dL Creatinine 1.28 H (0.66-1.25) mg/dL Glucose 119 H (74-99) mg/dL POC Glucose (mg/dL) (75-99) mg/dL AST 145 H (17-59) U/L ALT 166 H (4-49) U/L Alkaline Phosphatase 190 H (38-126) U/L Troponin I (0.000-0.034) ng/mL Total Protein 5.7 L (6.3-8.2) g/dL Albumin 2.8 L (3.5-5.0) g/dL HDL Cholesterol 23 L (40-60) mg/dL 01/29/21 01/29/21 Range/Units 04:45 10:04 WBC (3.8-10.6) k/uL Hgb (13.0-17.5) gm/dL Hct (39.0-53.0) % RDW (11.5-15.5) % Neutrophils # (1.3-7.7) k/uL Monocytes # (0-1.0) k/uL APTT (22.0-30.0) sec Fibrinogen 655 H 619 H (200-500) mg/dL Chloride (98-107) mmol/L BUN (9-20) mg/dL Creatinine (0.66-1.25) mg/dL Glucose (74-99) mg/dL POC Glucose (mg/dL) (75-99) mg/dL AST (17-59) U/L ALT (4-49) U/L Alkaline Phosphatase (38-126) U/L Troponin I (0.000-0.034) ng/mL Total Protein (6.3-8.2) g/dL Albumin (3.5-5.0) g/dL HDL Cholesterol (40-60) mg/dL Microbiology - Last 24 Hours (Table) 01/28/21 02:02 Blood Culture - Preliminary Blood No Growth after 24 hours
--- NOTE | 2021-01-29 11:55 | P.PN ---
Subjective Progress Note Date: 01/29/21 Principal diagnosis: Pulmonary embolism She is seen and examined lying flat in bed in the ICU. He is status post EKOS treatment. Dr. Anders had seen and evaluated patient this morning, removed catheter and sheath from right groin. He has dressing that is clean dry and intact without any evidence of bleeding or hematoma. He is able to move bilateral lower extremities. He denies any chest pain, or difficulty breathing. States that shortness of breath has improved slightly. He tolerated a regular breakfast this morning. He still has a Anders catheter intact. Objective - Vital Signs Vital signs: Vital Signs Temp 98.5 F 01/29/21 04:00 Pulse 79 01/29/21 08:00 Resp 26 H 01/29/21 08:00 BP 126/79 01/29/21 08:00 Pulse Ox 93 L 01/29/21 08:00 Intake & Output 01/28/21 01/29/21 01/29/21 18:59 06:59 18:59 Intake Total 1554.39 177.61 72.125 Output Total 320 435 105 Balance 1234.39 -257.39 -32.875 Weight 110.2 kg 111.1 kg Intake: IV 50 Intake, IV Titration 504.39 177.61 72.125 Amount Alteplase 10 mg In Sodium 35 35 Chloride 0.9% 100 ml @ 1 MG/HR 10 mls/hr IV .Q10H [facility] Rx#:[id number] Heparin Sod,Pork in 0.45% 142.39 107.61 NaCl 25,000 unit In 0.45 % NaCl 1 250ml.bag @ 18 UNITS/KG/HR 19.595 mls/hr IV .[id number] [facility] Rx#: [id number] Heparin Sod,Pork in 0.45% 36.083 NaCl 25,000 unit In 0.45 % NaCl 1 250ml.bag @ 2.5 mls/hr IV .Q24H [facility] Rx#: [id number] Heparin Sod,Pork in 0.45% 36.042 NaCl 25,000 unit In 0.45 % NaCl 1 250ml.bag @ 2.5 mls/hr IV .Q24H [facility] Rx#: [id number] Sodium Chloride 0.9% 1, 152 000 ml @ 100 mls/hr IV . Q10H [facility] Rx#:[id number] Sodium Chloride 0.9% 1, 175 35 000 ml @ 35 mls/hr IV . Q24H [facility] Rx#:[id number] Oral 1000 Output: Urine 320 435 105 Other: Voiding Method Indwelling Catheter Indwelling Catheter - Exam General appearance: The patient is alert, oriented, appears in no acute distress. HET: Head is normocephalic and atraumatic. Neck: Supple without lymphadenopathy. Trachea midline. Heart: S1 S2. Regular rate and rhythm. Lungs: Clear to auscultation bilaterally. Abdomen: Soft, nontender, nondistended. Extremities: Normal skin color and turgor. Bilateral lower extremity edema +2, right greater than left. Neurological: No focal deficits. Strength and sensation are grossly intact. - Labs CBC & Chem 7: 01/29/21 04:45 01/29/21 04:45 Labs: Abnormal Lab Results - Last 24 Hours (Table) 01/28/21 01/28/21 01/28/21 Range/Units 10:24 10:38 16:30 WBC (3.8-10.6) k/uL Hgb (13.0-17.5) gm/dL Hct (39.0-53.0) % RDW (11.5-15.5) % Neutrophils # (1.3-7.7) k/uL Monocytes # (0-1.0) k/uL APTT 87.1 H (22.0-30.0) sec Fibrinogen 780 H (200-500) mg/dL Chloride (98-107) mmol/L BUN (9-20) mg/dL Creatinine (0.66-1.25) mg/dL Glucose (74-99) mg/dL POC Glucose (mg/dL) 111 H (75-99) mg/dL AST (17-59) U/L ALT (4-49) U/L Alkaline Phosphatase (38-126) U/L Troponin I 1.420 H* (0.000-0.034) ng/mL Total Protein (6.3-8.2) g/dL Albumin (3.5-5.0) g/dL HDL Cholesterol (40-60) mg/dL 01/28/21 01/28/21 01/29/21 Range/Units 18:19 18:19 00:15 WBC 17.6 H (3.8-10.6) k/uL Hgb (13.0-17.5) gm/dL Hct (39.0-53.0) % RDW 18.2 H (11.5-15.5) % Neutrophils # 14.5 H (1.3-7.7) k/uL Monocytes # 1.1 H (0-1.0) k/uL APTT (22.0-30.0) sec Fibrinogen 733 H 620 H (200-500) mg/dL Chloride (98-107) mmol/L BUN (9-20) mg/dL Creatinine (0.66-1.25) mg/dL Glucose (74-99) mg/dL POC Glucose (mg/dL) (75-99) mg/dL AST (17-59) U/L ALT (4-49) U/L Alkaline Phosphatase (38-126) U/L Troponin I (0.000-0.034) ng/mL Total Protein (6.3-8.2) g/dL Albumin (3.5-5.0) g/dL HDL Cholesterol (40-60) mg/dL 01/29/21 01/29/21 01/29/21 Range/Units 00:15 04:45 04:45 WBC 13.8 H 12.8 H (3.8-10.6) k/uL Hgb 12.2 L 12.5 L (13.0-17.5) gm/dL Hct 38.6 L 38.9 L (39.0-53.0) % RDW 18.4 H 18.4 H (11.5-15.5) % Neutrophils # 11.0 H 9.8 H (1.3-7.7) k/uL Monocytes # (0-1.0) k/uL APTT (22.0-30.0) sec Fibrinogen (200-500) mg/dL Chloride 109 H (98-107) mmol/L BUN 43 H (9-20) mg/dL Creatinine 1.28 H (0.66-1.25) mg/dL Glucose 119 H (74-99) mg/dL POC Glucose (mg/dL) (75-99) mg/dL AST 145 H (17-59) U/L ALT 166 H (4-49) U/L Alkaline Phosphatase 190 H (38-126) U/L Troponin I (0.000-0.034) ng/mL Total Protein 5.7 L (6.3-8.2) g/dL Albumin 2.8 L (3.5-5.0) g/dL HDL Cholesterol 23 L (40-60) mg/dL 01/29/21 Range/Units 04:45 WBC (3.8-10.6) k/uL Hgb (13.0-17.5) gm/dL Hct (39.0-53.0) % RDW (11.5-15.5) % Neutrophils # (1.3-7.7) k/uL Monocytes # (0-1.0) k/uL APTT (22.0-30.0) sec Fibrinogen 655 H (200-500) mg/dL Chloride (98-107) mmol/L BUN (9-20) mg/dL Creatinine (0.66-1.25) mg/dL Glucose (74-99) mg/dL POC Glucose (mg/dL) (75-99) mg/dL AST (17-59) U/L ALT (4-49) U/L Alkaline Phosphatase (38-126) U/L Troponin I (0.000-0.034) ng/mL Total Protein (6.3-8.2) g/dL Albumin (3.5-5.0) g/dL HDL Cholesterol (40-60) mg/dL Microbiology - Last 24 Hours (Table) 01/28/21 02:02 Blood Culture - Preliminary Blood No Growth after 24 hours Assessment and Plan Assessment: 1. Status post pulmonary angiogram with initiation of pulmonary pharmacal [facility] anical thrombolysis with EKOS 2. Submassive Pulmonary embolism with evidence of right heart strain 3. COVID-19 pneumonitis 4. History of hypertension and hyperlipidemia Plan: 1. Continue symptomatic and supportive care 2. Catheter and sheath discontinued 3. Discontinue heparin, initiate Eliquis 10 mg twice a day for 7 days, then decrease to 5 mg twice a day 4. Continue regular diet 5. Discontinue Anders catheter 6. Activity as tolerated The patient may be discharged home from a vascular surgical standpoint once otherwise medically cleared and stable. Thank you for this consultation. The impression and plan of care has been dictated as directed. Dr. Anders I performed a history and examination of this patient, discussed the same with the dictator. I agree with the dictator's note ,documented as a scribe. Any additional findings or plans will be noted.
[2021-01-29] MEDS: SODIUM CHLORIDE 0.9% 1,000 ML IV SCH (14:34)
--- NOTE | 2021-01-29 17:48 | P.PN ---
Subjective Patient had a massive pulmonary embolism with right ventricular strain because of which patient to had a catheter directed TPA by vascular surgery of [facility] procedure. Patient is feeling well at this time patient is presently on 2 L of oxygen saturating well patient had right lower extremity DVT as well. Patient was diagnosed with COVID-19. And the PE and thrombo-embolism is secondary to COVID-19. Patient is being transferred out of ICU. Patient possibly can be discharged tomorrow. Cardiology is recommending a repeat echocardiogram is of t he left ventricle as strain. Otherwise cleared asked to surgery to be discharged. Constitutional: Denied any fatigue denied any fever. Cardio vascular: denied any chest pain, palpitations Gastrointestinal denied any nausea vomiting Pulmonary: Denied any shortness of breath cough Neurologic denied any new focal deficits All inpatient medications were reviewed and appropriate changes in these med ications as dictated in the interval history and assessment and plan. Objective - Vital Signs Vital signs: Vital Signs Temp 98.2 F 01/29/21 12:00 Pulse 76 01/29/21 13:00 Resp 33 H 01/29/21 13:00 BP 142/81 01/29/21 13:00 Pulse Ox 94 L 01/29/21 13:00 Intake & Output 01/28/21 01/29/21 01/29/21 18:59 06:59 18:59 Intake Total 1554.39 177.61 972.125 Output Total 320 435 580 Balance 1234.39 -257.39 392.125 Weight 110.2 kg 111.1 kg Intake: IV 50 Intake, IV Titration 504.39 177.61 72.125 Amount Alteplase 10 mg In Sodium 35 35 Chloride 0.9% 100 ml @ 1 MG/HR 10 mls/hr IV .Q10H ONE Rx#:[id number] Heparin Sod,Pork in 0.45% 142.39 107.61 NaCl 25,000 unit In 0.45 % NaCl 1 250ml.bag @ 18 UNITS/KG/HR 19.595 mls/hr IV .[id number] [facility] Rx#: [id number] Heparin Sod,Pork in 0.45% 36.083 NaCl 25,000 unit In 0.45 % NaCl 1 250ml.bag @ 2.5 mls/hr IV .Q24H [facility] Rx#: [id number] Heparin Sod,Pork in 0.45% 36.042 NaCl 25,000 unit In 0.45 % NaCl 1 250ml.bag @ 2.5 mls/hr IV .Q24H [facility] Rx#: [id number] Sodium Chloride 0.9% 1, 152 000 ml @ 100 mls/hr IV . Q10H [facility] Rx#:[id number] Sodium Chloride 0.9% 1, 175 35 000 ml @ 35 mls/hr IV . Q24H [facility] Rx#:[id number] Oral 1000 900 Output: Urine 320 435 580 Other: Voiding Method Indwelling Catheter Indwelling Catheter Indwelling Catheter - Exam PHYSICAL EXAMINATION: GENERAL: The patient is alert and oriented x3, not in any acute distress. Well developed, well nourished. HEENT: Pupils are round and equally reacting to light. EOMI. No scleral icterus. No conjunctival pallor. Normocephalic, atraumatic. No pharyngeal erythema. No thyromegaly. CARDIOVASCULAR: S1 and S2 present. No murmurs, rubs, or gallops. PULMONARY: Chest is clear to auscultation, no wheezing or crackles. ABDOMEN: Soft, nontender, nondistended, normoactive bowel sounds. No palpable organomegaly. MUSCULOSKELETAL: No joint swelling or deformity. EXTREMITIES: No cyanosis, clubbing, or pedal edema. NEUROLOGICAL: Gross neurological examination did not reveal any focal deficits. SKIN: No rashes. - Labs CBC & Chem 7: 01/29/21 04:45 01/29/21 04:45 Labs: Abnormal Lab Results - Last 24 Hours (Table) 01/28/21 01/28/21 01/29/21 Range/Units 18:19 18:19 00:15 WBC 17.6 H (3.8-10.6) k/uL Hgb (13.0-17.5) gm/dL Hct (39.0-53.0) % RDW 18.2 H (11.5-15.5) % Neutrophils # 14.5 H (1.3-7.7) k/uL Monocytes # 1.1 H (0-1.0) k/uL Fibrinogen 733 H 620 H (200-500) mg/dL Chloride (98-107) mmol/L BUN (9-20) mg/dL Creatinine (0.66-1.25) mg/dL Glucose (74-99) mg/dL AST (17-59) U/L ALT (4-49) U/L Alkaline Phosphatase (38-126) U/L Total Protein (6.3-8.2) g/dL Albumin (3.5-5.0) g/dL HDL Cholesterol (40-60) mg/dL 01/29/21 01/29/21 01/29/21 Range/Units 00:15 04:45 04:45 WBC 13.8 H 12.8 H (3.8-10.6) k/uL Hgb 12.2 L 12.5 L (13.0-17.5) gm/dL Hct 38.6 L 38.9 L (39.0-53.0) % RDW 18.4 H 18.4 H (11.5-15.5) % Neutrophils # 11.0 H 9.8 H (1.3-7.7) k/uL Monocytes # (0-1.0) k/uL Fibrinogen (200-500) mg/dL Chloride 109 H (98-107) mmol/L BUN 43 H (9-20) mg/dL Creatinine 1.28 H (0.66-1.25) mg/dL Glucose 119 H (74-99) mg/dL AST 145 H (17-59) U/L ALT 166 H (4-49) U/L Alkaline Phosphatase 190 H (38-126) U/L Total Protein 5.7 L (6.3-8.2) g/dL Albumin 2.8 L (3.5-5.0) g/dL HDL Cholesterol 23 L (40-60) mg/dL 01/29/21 01/29/21 Range/Units 04:45 10:04 WBC (3.8-10.6) k/uL Hgb (13.0-17.5) gm/dL Hct (39.0-53.0) % RDW (11.5-15.5) % Neutrophils # (1.3-7.7) k/uL Monocytes # (0-1.0) k/uL Fibrinogen 655 H 619 H (200-500) mg/dL Chloride (98-107) mmol/L BUN (9-20) mg/dL Creatinine (0.66-1.25) mg/dL Glucose (74-99) mg/dL AST (17-59) U/L ALT (4-49) U/L Alkaline Phosphatase (38-126) U/L Total Protein (6.3-8.2) g/dL Albumin (3.5-5.0) g/dL HDL Cholesterol (40-60) mg/dL Microbiology - Last 24 Hours (Table) 01/28/21 02:02 Blood Culture - Preliminary Blood No Growth after 24 hours Assessment and Plan Plan: The massive pulmonary embolism with right ventricular strain patient is status post catheter directed TPA by [facility] catheter patient is clinically doing well. Patient will be continued on anticoagulation with Eliquis. -Acute hypoxic respiratory failure secondary to massive PE this improved -Right ventricular strain pattern with the severe pulmonary hypertension which is acute and secondary to pulmonary embolism -Acute Renal failure probably prerenal secondary to pulmonary embolism renal azotemia, hydrochlorothiazide will be held and patient IV fluids will be increased. -Elevated liver enzymes due to hepatic congestion pulmonary hypertension -Acute pulmonary hypertension secondary to PE -Possibility of chronic kidney disease stage II, acute renal failure secondary to above-mentioned reasons -Hyperlipidemia -Hypertension
[2021-01-29] MEDS: ATORVASTATIN 40 MG TAB PO SCH (20:07)
[2021-01-29] MEDS: guaiFENesin-DM 600/30MG 1 EACH TAB.ER.12H PO SCH (20:07)
[2021-01-29] MEDS: LATANOPROST 0.005% OPHTH DROPS 2.5 ML BTL BOTH EYES SCH (20:08)
[2021-01-30 00:13] VITALS: RESP 18
[2021-01-30] MEDS: PANTOPRAZOLE 40 MG TABLET PO SCH (06:37)
[2021-01-30 08:39] LABS: Anisocytosis Slight; HGB 13.6 gm/dL (13.0-17.5); MCH 26.6 pg (25.0-35.0); MCHC 32.4 g/dL (31.0-37.0); Mean Platelet Volume 7.9; Microcytosis Slight; Platelet Count 343 k/uL (150-450); RBC 5.12 m/uL (4.30-5.90); RDW 18.3 % (11.5-15.5)
[2021-01-30 08:56] LABS: Calcium 9.2 mg/dL (8.4-10.2); Potassium 4.6 mmol/L (3.5-5.1)
[2021-01-30] MEDS: MULTIVITAMINS, THERA 1 EACH TAB PO SCH (09:02)
[2021-01-30] MEDS: DEXAMETHASONE SOD PHOSPHATE 10 MG/ML 1 ML VIAL IV SCH (09:02)
[2021-01-30] MEDS: APIXABAN 5 MG TAB PO SCH ×2 (09:03→20:18)
[2021-01-30] MEDS: lisinopriL 20 MG TAB PO SCH (09:03)
--- NOTE | 2021-01-30 09:30 | P.DS ---
Providers Date of admission: 01/28/21 03:47 Attending physician: Jomar Pederson Consults: 01/28/21 03:43 Consult Physician Routine Consulting Provider: Víctor Delgado Consult Reason/Comments: covid Do you want consulting provider notified?: Yes Consult Physician Urgent Consulting Provider: Kody Rod Consult Reason/Comments: PE Do you want consulting provider notified?: Yes 01/28/21 06:14 Consult Physician Urgent Consulting Provider: Nova Anders Consult Reason/Comments: PE Do you want consulting provider notified?: Yes Primary care physician: Jomar Pederson Hospital Course: Patient had a massive pulmonary embolism with right ventricular strain because of which patient to had a catheter directed TPA by vascular surgery of [facility] procedure. Patient is feeling well at this time patient is presently on 2 L of oxygen saturating well patient had right lower extremity DVT as well. Patient was diagnosed with COVID-19. And the PE and thrombo-embolism is secondary to COVID-19. Patient is being transferred out of ICU. Patient possibly can be discharged tomorrow. Cardiology is recommending a repeat echocardiogram is of the left ventricle as strain. Otherwise cleared asked to surgery to be discharged. 01/30/2021 Patient is clinically doing well off oxygen patient will undergo echocardiogram after that cardiology will evaluate the patient and if cleared by cardiology patient will be discharged today. Patient is on room air. Patient will need to be on anticoagulation for 3-6 months after which patient is to be tested for procoagulant conditions depending on that decision need to be made regarding continuing anticoagulation indefinitely. The PE appears to be secondary to COVID-19 PHYSICAL EXAMINATION: GENERAL: The patient is alert and oriented x3, not in any acute distress. Well developed, well nourished. HEENT: Pupils are round and equally reacting to light. EOMI. No scleral icterus. No conjunctival pallor. Normocephalic, atraumatic. No pharyngeal erythema. No thyromegaly. CARDIOVASCULAR: S1 and S2 present. No murmurs, rubs, or gallops. PULMONARY: Chest is clear to auscultation, no wheezing or crackles. ABDOMEN: Soft, nontender, nondistended, normoactive bowel sounds. No palpable organomegaly. MUSCULOSKELETAL: No joint swelling or deformity. EXTREMITIES: No cyanosis, clubbing, or pedal edema. NEUROLOGICAL: Gross neurological examination did not reveal any focal deficits. SKIN: No rashes. Assessment and Plan Plan: The massive pulmonary embolism with right ventricular strain patient is status post catheter directed TPA by [facility] catheter patient is clinically doing well. Patient will discharged on anticoagulation with Eliquis. -Acute hypoxic respiratory failure secondary to massive PE this improved his on room air -Right ventricular strain pattern with the severe pulmonary hypertension which is acute and secondary to pulmonary embolism -Acute Renal failure probably prerenal secondary to pulmonary embolism pre renal azotemia, improved patient the doesn't need hydrochlorothiazide as patient is already on Lasix. -Elevated liver enzymes due to hepatic congestion pulmonary hypertension -Acute pulmonary hypertension secondary to PE -Appears to have acute renal failure no chronic kidney disease. -Hyperlipidemia -Hypertension Patient Condition at Discharge: Serious Plan - Discharge Summary Discharge Rx Participant: No New Discharge Prescriptions: New Apixaban [Eliquis Starter Pack (for VTE)] 0 mg PO DIRECTED 30 Days #1 pack lisinopriL [Zestril] 20 mg PO DAILY #30 tab Continue Omeprazole 20 mg PO DAILY Multivitamins, Thera [Multivitamin (formulary)] 1 tab PO DAILY Simvastatin [Zocor] 80 mg PO HS Latanoprost [Xalatan 0.005%] 1 drop BOTH EYES HS Furosemide [Lasix] 20 mg PO DAILY PRN PRN Reason: Edema Celecoxib [CeleBREX] 200 mg PO BID Discontinued Quinapril/Hydrochlorothiazide [Quinapril-Hctz 20-25 mg Tab] 1 tab PO DAILY Azithromycin [Zithromax Z-pack (6 tabs)] See Taper PO DIRECTED methylPREDNISolone [Medrol Dose Pack] See Taper PO DIRECTED Cefdinir 300 mg PO BID Discharge Medication List Celecoxib [CeleBREX] 200 mg PO BID 01/13/21 [History] Furosemide [Lasix] 20 mg PO DAILY PRN 01/13/21 [History] Latanoprost [Xalatan 0.005%] 1 drop BOTH EYES HS 01/13/21 [History] Multivitamins, Thera [Multivitamin (formulary)] 1 tab PO DAILY 01/13/21 [History] Omeprazole 20 mg PO DAILY 01/13/21 [History] Simvastatin [Zocor] 80 mg PO HS 01/13/21 [History] Apixaban [Eliquis Starter Pack (for VTE)] 0 mg PO DIRECTED 30 Days #1 pack 01/29/21 [Rx] lisinopriL [Zestril] 20 mg PO DAILY #30 tab 01/30/21 [Rx] Follow up Appointment(s)/Referral(s): Jomar Pederson MD [Primary Care Provider] - 3 Days Genaro Pires MD [STAFF PHYSICIAN] - 2 Weeks Nova Anders DO [STAFF PHYSICIAN] - 1 Week
--- NOTE | 2021-01-30 09:36 | PN ---
PROGRESS NOTE Mr. Montalvo is in sinus rhythm, comfortable. He has had a pulmonary embolism that was large with strain. He had [place] procedure performed and seems to be doing well. No chest pain. S1-S2 heard normally. Short systolic murmur noted. Lungs reveal improved air entry. Abdomen and lower extremity exam unchanged. Room air oxygen saturation is good. His PA pressures have improved. JVD is not that much evident. I am recommending a brief echo and discharge followed by an office visit in 2 weeks to call for questions. MMODL / IJN: [id number] /
[2021-01-30] MEDS ORDERED: IPRATROPIUM-ALBUTEROL 3 ML NEB INHALATION PRN (09:54)
--- NOTE | 2021-01-30 10:54 | P.PN ---
Subjective Progress Note Date: 01/30/21 Principal diagnosis: Massive pulmonary embolism with right ventricular strain status post catheter directed TPA by vascular surgery Right lower extremity deep venous thrombosis Covert 19 pneumonia Acute hypoxic respiratory failure due to combination of COVID-19 pneumonia and thromboembolism with DVT PE Hypertension hypertensive cardiovascular disease Elevated liver enzymes 4-6 times normal limit 01/30/2021, patient seen eval examined during the rounds labs reviewed medic ations reviewed, respiratory status remains marginal patient is slightly tachypneic with bilateral wheezing will start bronchodilators as needed, patient has been started on direct oral anticoagulant, and medical management is being optimized, patient is afebrile and oxygen saturation is 90-93% room air, hemodynamic status stable, would recommend to monitor observe closely due to multiple issues including right heart failure patient is status post TPA day #2 01/29/2021, patient seen eval examined during the rounds labs reviewed medications reviewed care plan discussed with the staff at length, patient remains on 2 L breathing comfortably denies any chest pain uncomfortable due to laying supine, oxygen saturation is 93% on 2 L, hemodynamic status stable slightly tachypneic with respiratory rate of the 26, labs significant for leukocytosis of 12,800 which is improving, hemoglobin stable 12.5, platelets are also stable 3 79,000, BUN/creatinine 43 and 1.28, 50 slightly improved, Patient seen eval reexamined on third floor, patient admitted to hospital with ongoing progressive dizziness, patient was brought in to emergency department by EMS, patient is status post treatment with monoclonal antibody, for last 24-48 hours patient has been more short of breath than usual and progressively become weaker due to severity or shortness of breath along with mid sternal chest pain decided to come into emergency department, computed tomography scan of the chest significant for bilateral pulmonary embolism with CT evidence of right ventricular strain, patient has pulmonary parenchymal radicular inflammation consistent with COVID-19 pneumonia, patient has been started on IV heparin as pe r protocol, the echocardiogram revealed ejection fraction of 55% with RV systolic dysfunction, ejection fraction of 50-55%, LA appears to be moderately dilated, RV mildly enlarged, patient has been evaluated by vascular surgery, being planned for [facility] procedure later on today by vascular surgery, patient also has a duplex ultrasound lower extremity positive for right DVT past medical history history is significant for osteoarthritis GERD hypertension hypertensive cardiovascular disease and dyslipidemia, on arrival he was noted to have desaturation hypoxia sats were only 87% at room air however supplemental oxygen increase to 96-97%, BUN/creatinine elevated 29 and 1.35, liver enzymes elevated AST is 218 ALT is 188, alk phos 255, LDH was over 1200, C-reactive protein 22, lactic acid 2.9, Objective - Vital Signs Vital signs: Vital Signs Temp 98.0 F 01/30/21 04:00 Pulse 67 01/30/21 04:00 Resp 18 01/30/21 04:00 BP 130/71 01/30/21 04:00 Pulse Ox 93 L 01/30/21 04:00 Intake & Output 01/29/21 01/30/21 01/30/21 18:59 06:59 18:59 Intake Total 972.125 600 240 Output Total 580 Balance 392.125 600 240 Weight 111.4 kg Intake: Intake, IV Titration 72.125 Amount Heparin Sod,Pork in 0.45% 36.083 NaCl 25,000 unit In 0.45 % NaCl 1 250ml.bag @ 2.5 mls/hr IV .Q24H [facility] Rx#: [id number] Heparin Sod,Pork in 0.45% 36.042 NaCl 25,000 unit In 0.45 % NaCl 1 250ml.bag @ 2.5 mls/hr IV .Q24H [facility] Rx#: [id number] Oral 900 600 240 Output: Urine 580 Other: Voiding Method Toilet Toilet Urinal Urinal # Voids 2 # Bowel Movements 1 - Exam - Constitutional General appearance: average body habitus, disheveled, mild distress - EENT Eyes: PERRLA Ears: bilateral: normal - Neck Neck: normal ROM Carotids: bilateral: upstroke normal Thyroid: bilateral: normal size - Respiratory Respiratory: bilateral: diminished bilateral wheezing - Cardiovascular Rhythm: regular Heart sounds: normal: S1, S2 - Neurologic Neurologic: CNII-XII intact - Musculoskeletal Musculoskeletal: generalized weakness, strength equal bilaterally - Psychiatric Psychiatric: A&O x's 3, appropriate affect, intact judgment & insight - Labs CBC & Chem 7: 01/30/21 08:21 01/30/21 08:21 Labs: Abnormal Lab Results - Last 24 Hours (Table) 01/30/21 01/30/21 Range/Units 08: 08:21 WBC 11.0 H (3.8-10.6) k/uL RDW 18.3 H (11.5-15.5) % BUN 36 H (9-20) mg/dL Glucose 158 H (74-99) mg/dL Microbiology - Last 24 Hours (Table) 01/28/21 02:02 Blood Culture - Preliminary Blood No Growth after 48 hours Assessment and Plan Assessment: Massive pulmonary embolism with right ventricular strain status post catheter dissected TPA on January 28 Right lower extremity deep venous thrombosis Covid 19 pneumonia Acute hypoxic respiratory failure due to combination of COVID-19 pneumonia and thromboembolism with DVT PE Hypertension hypertensive cardiovascular disease Acute on chronic kidney disease Elevated liver enzymes 4-6 times normal limit Plan: Continue oral diuretic anticoagulant Status post [facility] transcatheter direct infusion therapy of alteplase by vascular surgery to decrease tumor burden IV Decadron Supplement Supplemental oxygen as needed Bronchodilators Patient is not a candidate for IV Remdesivir therapy due to significantly elevated liver enzymes Monitor renal functions closely Further plan of care as per clinical response of the patient Time with Patient: Greater than 30
[2021-01-30] MEDS: guaiFENesin-DM 600/30MG 1 EACH TAB.ER.12H PO SCH ×2 (11:25→20:18)
--- NOTE | 2021-01-30 14:00 | ECHOF ---
Referral Reason:RV function and pressures MEASUREMENTS -------- HEIGHT: 182.9 cm WEIGHT: 110.7 kg BP: 130/71 RVIDd: 4.0 cm (< 3.3) RAP: 5.00 mmHg RVSP: 52.83 mmHg TAPSE: 22.99 mm FINDINGS -------- Sinus rhythm. Limited Study Overall left ventricular systolic function is normal with, an EF between 60 - 65 %. The right ventricle is moderately enlarged. The right ventricular systolic function is moderately i mpaired. There is no pericardial effusion. CONCLUSIONS -------- 1. Limited Study 2. Overall left ventricular systolic function is normal with, an EF between 60 - 65 %. 3. The right ventricle is moderately enlarged. RVSP 50 mm of Hg 4. The right ventricular systolic function is moderately impaired. 5. There is no pericardial effusion. [employer]ISHER: Jeniffer Dugan RDCS
[2021-01-30] MEDS: ATORVASTATIN 40 MG TAB PO SCH (20:18)
[2021-01-30] MEDS: LATANOPROST 0.005% OPHTH DROPS 2.5 ML BTL BOTH EYES SCH (20:18)
[2021-01-31 04:09] VITALS: PULSE 60
[2021-01-31] MEDS: PANTOPRAZOLE 40 MG TABLET PO SCH (07:04)
[2021-01-31] MEDS: guaiFENesin-DM 600/30MG 1 EACH TAB.ER.12H PO SCH (09:14)
[2021-01-31] MEDS: APIXABAN 5 MG TAB PO SCH (09:14)
[2021-01-31] MEDS: DEXAMETHASONE SOD PHOSPHATE 10 MG/ML 1 ML VIAL IV SCH (09:14)
[2021-01-31] MEDS: lisinopriL 20 MG TAB PO SCH (09:14)
[2021-01-31] MEDS: MULTIVITAMINS, THERA 1 EACH TAB PO SCH (09:14)
[2021-01-31 10:01] VITALS: BP 144/76; TEMP 97.7
--- NOTE | 2021-01-31 10:37 | P.DS ---
Providers Date of admission: 01/28/21 03:47 Attending physician: Jomar Pederson Consults: 01/28/21 03:43 Consult Physician Routine Consulting Provider: Víctor Delgado Consult Reason/Comments: covid Do you want consulting provider notified?: Yes Consult Physician Urgent Consulting Provider: Kody Rod Consult Reason/Comments: PE Do you want consulting provider notified?: Yes 01/28/21 06:14 Consult Physician Urgent Consulting Provider: Nova Anders Consult Reason/Comments: PE Do you want consulting provider notified?: Yes Primary care physician: Jomar Pederson Hospital Course: Patient had a massive pulmonary embolism with right ventricular strain because of which patient to had a catheter directed TPA by vascular surgery of [facility] procedure. Patient is feeling well at this time patient is presently on 2 L of oxygen saturating well patient had right lower extremity DVT as well. Patient was diagnosed with COVID-19. And the PE and thrombo-embolism is secondary to COVID-19. Patient is being transferred out of ICU. Patient possibly can be discharged tomorrow. Cardiology is recommending a repeat echocardiogram is of the left ventricle as strain. Otherwise cleared asked to surgery to be discharged. 01/30/2021 Patient is clinically doing well off oxygen patient will undergo echocardiogram after that cardiology will evaluate the patient and if cleared by cardiology patient will be discharged today. Patient is on room air. Patient will need to be on anticoagulation for 3-6 months after which patient is to be tested for procoagulant conditions depending on that decision need to be made regarding continuing anticoagulation indefinitely. The PE appears to be secondary to COVID-19. 01/31/2021 Patient was not discharged yesterday as pulmonary wanted to keep the patient for one more night. Patient is clinically doing well no wheezing patient is on room air. Patient will be discharged today patient will be given 4 more days of Decadron at a dose. Patient received 3 days of Eliquis because of the chest and take 10 mg twice a day for 4 more days after that he can switch it to 5 mg twice a day PHYSICAL EXAMINATION: GENERAL: The patient is alert and oriented x3, not in any acute distress. Well developed, well nourished. HEENT: Pupils are round and equally reacting to light. EOMI. No scleral icterus. No conjunctival pallor. Normocephalic, atraumatic. No pharyngeal erythema. No thyromegaly. CARDIOVASCULAR: S1 and S2 present. No murmurs, rubs, or gallops. PULMONARY: Chest is clear to auscultation, no wheezing or crackles. ABDOMEN: Soft, nontender, nondistended, normoactive bowel sounds. No palpable organomegaly. MUSCULOSKELETAL: No joint swelling or deformity. EXTREMITIES: No cyanosis, clubbing, or pedal edema. NEUROLOGICAL: Gross neurological examination did not reveal any focal deficits. SKIN: No rashes. Assessment and Plan Plan: The massive pulmonary embolism with right ventricular strain patient is status post catheter directed TPA by [facility] catheter patient is clinically doing well. Patient will discharged on anticoagulation with Eliquis. -Acute hypoxic respiratory failure secondary to massive PE this improved his on room air -Right ventricular strain pattern with the severe pulmonary hypertension which is acute and secondary to pulmonary embolism -Acute Renal failure probably prerenal secondary to pulmonary embolism pre renal azotemia, improved patient the doesn't need hydrochlorothiazide as patient is already on Lasix. -Elevated liver enzymes due to hepatic congestion pulmonary hypertension -Acute pulmonary hypertension secondary to PE -Appears to have acute renal failure no chronic kidney disease. -Hyperlipidemia -Hypertension Patient Condition at Discharge: Serious Plan - Discharge Summary Discharge Rx Participant: No New Discharge Prescriptions: New Dexamethasone [Decadron] 4 mg PO DAILY #4 tablet Apixaban [Eliquis Starter Pack (for VTE)] 0 mg PO DIRECTED 30 Days #1 pack lisinopriL [Zestril] 20 mg PO DAILY #30 tab Continue Omeprazole 20 mg PO DAILY Multivitamins, Thera [Multivitamin (formulary)] 1 tab PO DAILY Simvastatin [Zocor] 80 mg PO HS Latanoprost [Xalatan 0.005%] 1 drop BOTH EYES HS Furosemide [Lasix] 20 mg PO DAILY PRN PRN Reason: Edema Celecoxib [CeleBREX] 200 mg PO BID Discontinued Quinapril/Hydrochlorothiazide [Quinapril-Hctz 20-25 mg Tab] 1 tab PO DAILY Azithromycin [Zithromax Z-pack (6 tabs)] See Taper PO DIRECTED methylPREDNISolone [Medrol Dose Pack] See Taper PO DIRECTED Cefdinir 300 mg PO BID Discharge Medication List Celecoxib [CeleBREX] 200 mg PO BID 01/13/21 [History] Furosemide [Lasix] 20 mg PO DAILY PRN 01/13/21 [History] Latanoprost [Xalatan 0.005%] 1 drop BOTH EYES HS 01/13/21 [History] Multivitamins, Thera [Multivitamin (formulary)] 1 tab PO DAILY 01/13/21 [History] Omeprazole 20 mg PO DAILY 01/13/21 [History] Simvastatin [Zocor] 80 mg PO HS 01/13/21 [History] Apixaban [Eliquis Starter Pack (for VTE)] 0 mg PO DIRECTED 30 Days #1 pack 01/29/21 [Rx] lisinopriL [Zestril] 20 mg PO DAILY #30 tab 01/30/21 [Rx] Dexamethasone [Decadron] 4 mg PO DAILY #4 tablet 01/31/21 [Rx] Follow up Appointment(s)/Referral(s): Jomar Pederson MD [Primary Care Provider] - 3 Days (Please call the office on Monday to make your appointment) Genaro Pires MD [STAFF PHYSICIAN] - 2 Weeks (Please call on Monday to make appointment) Nova Anders DO [STAFF PHYSICIAN] - 1 Week (please call the office Monday to make your appointment) Patient Instructions/Handouts: Pulmonary Embolism (ED), Pulmonary Embolism (DC), Deep Vein Thrombosis (ED) Discharge Disposition: HOME SELF-CARE
--- NOTE | 2021-01-31 13:38 | P.PN ---
Subjective Progress Note Date: 01/31/21 Principal diagnosis: Massive pulmonary embolism with right ventricular strain status post catheter directed TPA by vascular surgery Right lower extremity deep venous thrombosis Covert 19 pneumonia Acute hypoxic respiratory failure due to combination of COVID-19 pneumonia and thromboembolism with DVT PE Hypertension hypertensive cardiovascular disease Elevated liver enzymes 4-6 times normal limit 01/31/2021, patient seen and evaluated examined during the rounds, history s tatus remains stable patient on room air, denies any chest pain and mild shortness of breath is present oxygen saturation however remains stable, patient likely will be discharged later on today on direct oral anticoagulant would recommend follow-up in outpatient basis, patient likely has sleep disorder breathing and sleep apnea as well the stable evaluated 01/30/2021, patient seen eval examined during the rounds labs reviewed medications reviewed, respiratory status remains marginal patient is slightly tachypneic with bilateral wheezing will start bronchodilators as needed, patient has been started on direct oral anticoagulant, and medical management is being optimized, patient is afebrile and oxygen saturation is 90-93% room air, hemodynamic status stable, would recommend to monitor observe closely due to multiple issues including right heart failure patient is status post TPA day #2 01/29/2021, patient seen eval examined during the rounds labs reviewed medications reviewed care plan discussed with the staff at length, patient remains on 2 L breathing comfortably denies any chest pain uncomfortable due to laying supine, oxygen saturation is 93% on 2 L, hemodynamic status stable slightly tachypneic with respiratory rate of the 26, labs significant for leukocytosis of 12,800 which is improving, hemoglobin stable 12.5, platelets are also stable 3 79,000, BUN/creatinine 43 and 1.28, 50 slightly improved, Patient seen eval reexamined on third floor, patient admitted to hospital with ongoing progressive dizziness, patient was brought in to emergency department by EMS, patient is status post treatment with monoclonal antibody, for last 24-48 hours patient has been more short of breath than usual and progressively become weaker due to severity or shortness of breath along with mid sternal chest pain decided to come into emergency department, computed tomography scan of the chest significant for bilateral pulmonary embolism with CT evidence of right ventricular strain, patient has pulmonary parenchymal radicular inflammation consistent with COVID-19 pneumonia, patient has been started on IV heparin as per protocol, the echocardiogram revealed ejection fraction of 55% with RV systolic dysfunction, ejection fraction of 50-55%, LA appears to be moderately dilated, RV mildly enlarged, patient has been evaluated by vascular surgery, being planned for EKOS procedure later on today by vascular surgery, patient also has a duplex ultrasound lower extremity positive for right DVT past medical history history is significant for osteoarthritis GERD hypertension hypertensive cardiovascular disease and dyslipidemia, on arrival he was noted to have desaturation hypoxia sats were only 87% at room air however supplemental oxygen increase to 96-97%, BUN/creatinine elevated 29 and 1.35, liver enzymes elevated AST is 218 ALT is 188, alk phos 255, LDH was over 1200, C-reactive protein 22, lactic acid 2.9, Objective - Vital Signs Vital signs: Vital Signs Temp 97.7 F 01/31/21 08:00 Pulse 60 01/31/21 08:00 Resp 18 01/31/21 08:00 BP 144/76 01/31/21 08:00 Pulse Ox 95 01/31/21 08:00 Intake & Output 01/30/21 01/31/21 01/31/21 18:59 06:59 18:59 Intake Total 1770 10 600 Balance 1770 10 600 Weight 111.1 kg Intake: IV 30 10 Invasive Line 1 30 10 Oral 1740 600 Other: Voiding Method Toilet Toilet Toilet Urinal Urinal Urinal # Voids 1 - Exam - Constitutional General appearance: average body habitus, disheveled, mild distress - EENT Eyes: PERRLA Ears: bilateral: normal - Neck Neck: normal ROM Carotids: bilateral: upstroke normal Thyroid: bilateral: normal size - Respiratory Respiratory: bilateral: diminished bilateral wheezing - Cardiovascular Rhythm: regular Heart sounds: normal: S1, S2 - Neurologic Neurologic: CNII-XII intact - Musculoskeletal Musculoskeletal: generalized weakness, strength equal bilaterally - Psychiatric Psychiatric: A&O x's 3, appropriate affect, intact judgment & insight - Labs CBC & Chem 7: 01/30/21 08:21 01/30/21 08:21 Labs: Microbiology - Last 24 Hours (Table) 01/28/21 02:02 Blood Culture - Preliminary Blood No Growth after 72 hours Assessment and Plan Assessment: Massive pulmonary embolism with right ventricular strain status post catheter dissected TPA on January 28 Right lower extremity deep venous thrombosis Covid 19 pneumonia Acute hypoxic respiratory failure due to combination of COVID-19 pneumonia and thromboembolism with DVT PE Hypertension hypertensive cardiovascular disease Acute on chronic kidney disease Elevated liver enzymes 4-6 times normal limit Plan: Continue oral diuretic anticoagulant Status post Ekos transcatheter direct infusion therapy of alteplase by vascular surgery to decrease tumor burden IV Decadron Supplement Supplemental oxygen as needed Bronchodilators Patient is not a candidate for IV Remdesivir therapy due to significantly elevated liver enzymes Monitor renal functions closely Further plan of care as per clinical response of the patient Time with Patient: Greater than 30
--- NOTE | 2021-02-03 06:40 | CDI ---
Documentation Clarification Form Date: 02/03/21 From: Alesia Duran Phone: Admit Date: 01/28/2021 03:47:00 AM Patient Name: Rick Montalvo Visit Number: [id number] Discharge Date: 01/31/2021 11:31:00 AM ATTENTION: The Clinical Documentation Specialists (CDI) and [facility] Coding Staff appreciate your assistance in clarifying documentation. Please respond to the clarification below the line at the bottom and electronically sign. The CDI & [facility] Coding staff will review the response and follow-up if needed. Please note: Queries are made part of the Legal Health Record. If you have any questions, please contact the author of this message via ITS. Dr. Deanne Sterling, Your patient has troponin level(s) of: 01/28/21-0.789, 1.490 & 1.420. Please clarify if there is an additional diagnosis and/or clinical significance related to this value. 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 [ ] Type 2 NC due to (specify cause ____) [ ] Troponemia, not clinically significant [ ] Other, please specify [ ] Unable to determine Elevated troponin, most likely due to pulmonary embolism MTDD
--- NOTE | 2021-02-03 07:00 | CDI ---
Documentation Clarification Form Date: 02/02/21 From: Alesia Duran Phone: Admit Date: 01/28/2021 03:47:00 AM Patient Name: Rick Montalvo Visit Number: [id number] Discharge Date: 01/31/2021 11:31:00 AM ATTENTION: The Clinical Documentation Specialists (CDI) and [facility] Coding Staff appreciate your assistance in clarifying documentation. Please respond to the clarification below the line at the bottom and electronically sign. The CDI & [facility] Coding staff will review the response and follow-up if needed. Please note: Queries are made part of the Legal Health Record. If you have any questions, please contact the author of this message via ITS. Dr. Deanne Sterling, Your patient has the documented diagnosis of unspecified heart failure in the H&P, three consults, and progress notes. Additional information regarding the [type, acuity] of CHF is requested. History/Risk Factors: acute PE, recent COVID, HTN, aortic and tricuspid regurgitation Clinical Indicators: He has some swelling in his lower extremities right greater than left. VS/Pulse OX: T-98.7, P79, R-19, BP-109/64, O2 sat-87 BNP: 2080 Echocardiogram Results: Overall left ventricular systolic function is low-normal with, an EF between 50 - 55 %. Chest x-ray: none available Treatment: Home meds: Lasix prn, Quinapril-Hctz In your professional opinion, can you please clarify the [acuity and type] of CHF if known? [ ] Acute Systolic Heart Failure (reduced EF) [ ] Chronic Systolic Heart Failure (reduced EF) [ ] Acute on Chronic Systolic Heart Failure (reduced EF) [ ] Other, please specify [ ] Unable to determine Unable to determine MTDD
--- NOTE | 2021-02-03 07:17 | CDI ---
Documentation Clarification Form Date: 02/03/2021 07:10:00 AM From: Alesia Duran Phone: Admit Date: 01/28/2021 03:47:00 AM Patient Name: Rick Montalvo Visit Number: [id number] Discharge Date: 01/31/2021 11:31:00 AM ATTENTION: The Clinical Documentation Specialists (CDI) and [facility] Coding Staff appreciate your assistance in clarifying documentation. Please respond to the clarification below the line at the bottom and electronically sign. The CDI & [facility] Coding staff will review the response and follow-up if needed. Please note: Queries are made part of the Legal Health Record. If you have any questions, please contact the author of this message via ITS. Dr. Ashish Peck, There is documentation of COVID in ED note, H&P, consults, progress notes and discharge summary. Additional clarification is requested. History/Risk Factors: acute PE with right heart strain Clinical Indicators: He was admitted with significant medical history of Covid 19 pneumoniatreated with monoclonal antibody therapy in the past. He tested positive January 13. Treatment: Treatment basically for pulmonary embolism - EKOS thrombolysis. Not a candidate for Remdesivir therapy due to significantly elevated liver enzymes. Oxygen Please clarify the current status of the patients COVID-19 infection in the next progress note and/or discharge summary such as: COVID-19 is not a current infection, and the stated condition is a residual effect/sequelae of COVID-19 COVID-19 continues to be a current and active infection, and the stated condition is a continuation of its symptoms Other explanation of clinical findings (please specify): Clinically unable to determine the current status of the patients COVID-19 infection Unknown COVID-19 is not a current infection, and the stated condition is a residual effect/sequelae of COVID-19 MTDD
== END 2021-01-31 11:31 | disposition home or self-care (01) | DRG 166 ==
LOC: EC 01:16 → 3SCARD 03:47 → 2SICU 15:47 → 3SCARD 01-29 14:21
PROVIDERS: ADMIT Family Medicine; ATTEND Family Medicine
PROC: 02FQ3Z0 Fragmentation of Right Pulmonary Artery, Percutaneous Approach, Ultrasonic (ICD-10-PCS; principal; 2021-01-28 14:50)
PROC: 02FR3Z0 Fragmentation of Left Pulmonary Artery, Percutaneous Approach, Ultrasonic (ICD-10-PCS; principal; 2021-01-28 14:50)
PROC: B31S1ZZ Fluoroscopy of Right Pulmonary Artery using Low Osmolar Contrast (ICD-10-PCS; principal; 2021-01-28 14:50)
PROC: B31T1ZZ Fluoroscopy of Left Pulmonary Artery using Low Osmolar Contrast (ICD-10-PCS; principal; 2021-01-28 14:50)
DX: I26.09 Other pulmonary embolism with acute cor pulmonale (principal); J96.01 Acute respiratory failure with hypoxia; J18.9 Pneumonia, unspecified organism; I82.411 Acute embolism and thrombosis of right femoral vein; N17.9 Acute kidney failure, unspecified; I13.0 Hypertensive heart and chronic kidney disease with heart failure and stage 1 through stage 4 chronic kidney disease, or unspecified chronic kidney disease; I27.24 Chronic thromboembolic pulmonary hypertension; E27.8 Other specified disorders of adrenal gland; I08.2 Rheumatic disorders of both aortic and tricuspid valves; I50.9 Heart failure, unspecified; K76.1 Chronic passive congestion of liver; B94.8 Sequelae of other specified infectious and parasitic diseases; E86.0 Dehydration; E83.42 Hypomagnesemia; I45.10 Unspecified right bundle-branch block; E78.5 Hyperlipidemia, unspecified; G47.30 Sleep apnea, unspecified; M19.90 Unspecified osteoarthritis, unspecified site; K21.9 Gastro-esophageal reflux disease without esophagitis; E66.9 Obesity, unspecified; Z68.33 Body mass index [BMI] 33.0-33.9, adult; R77.8 Other specified abnormalities of plasma proteins; Z79.1 Long term (current) use of non-steroidal anti-inflammatories (NSAID); Z79.899 Other long term (current) drug therapy; Z87.39 Personal history of other diseases of the musculoskeletal system and connective tissue; Z98.890 Other specified postprocedural states
CPT/HCPCS: 36415; 37211; 70450; 71275; 72125; 80048; 80053; 80061; 83605; 83615; 83690; 83735; 83880; 84484; 85025; 85027; 85379; 85384; 85610; 85730; 86140; 87040; 93005; 93306; 93308; 93970; 96374; 99291

== ENCOUNTER → 2021-02-23 | Outpatient (CLI) | payer MEDICARE ==
--- NOTE | 2021-02-23 11:36 | US ---
EXAMINATION TYPE: US venous doppler duplex LE BI DATE OF EXAM: 02/23/2021 11:20 AM COMPARISON: 01/28/2021 CLINICAL HISTORY: R60.0 Edema. Hx recent right DVT. On blood thinners. Right leg swelling. SIDE PERFORMED: Bilateral TECHNIQUE: The lower extremity deep venous system is examined utilizing real time linear array sonog linda with graded compression, doppler sonography and color-flow sonography. VESSELS IMAGED: Common Femoral Vein Deep Femoral Vein Greater Saphenous Vein * Femoral Vein Popliteal Vein Small Saphenous Vein * Proximal Calf Veins (* superficial vessels) Right Leg: Negative for DVT Left Leg: Negative for DVT IMPRESSION: 1. No evidence of deep venous thrombosis in the bilateral lower extremity veins.
== END | disposition home or self-care (01) ==
LOC: RADUSWWP 10:58
PROVIDERS: ATTEND Family Medicine
DX: R60.0 Localized edema (principal); Z86.718 Personal history of other venous thrombosis and embolism
CPT/HCPCS: 93970

== ENCOUNTER → 2025-01-29 | Outpatient (CLI) | payer MEDICARE ==
--- NOTE | 2025-01-29 09:35 | XR ---
EXAMINATION TYPE: XR lumbosacral spine min 4V DATE OF EXAM: 01/29/2025 9:23 AM INDICATION: Patient age:Male; 84 years old; Reason for study: M51.362 OTH INTVRT DISC DEGEN, LUM RGN W DISCOG BC; [facility]. pain COMPARISON: Thoracic spine radiograph 06/14/2018 TECHNIQUE: Frontal, lateral , bilateral oblique and coned in L5-S1 lateral views of the spine. FINDINGS: There are 5 lumbar type vertebral bodies identified. No evidence of any acute osseous patho logy. No evidence of loss of vertebral body height is seen. Dextrocurvature of the lumbar spine with apex at L3. Multilevel disc space narrowing with endplate sclerosis and large anterior osteophytes. Multilevel facet arthropathy of the lower lumbar spine. Most pronounced at L5-S1. IMPRESSION: 1. No acute process. 2. Moderate to severe multilevel degenerative disc disease and facet arthropathy of the lumbar spine . Consider further evaluation with MR as clinically indicated. 3. Dextroscoliotic curvature of the lumbar spine. [facility], , 01/29/2025 9:33 AM
== END | disposition home or self-care (01) ==
LOC: RADXRMAIN 09:01
PROVIDERS: ATTEND Family Medicine
DX: M51.362 Other intervertebral disc degeneration, lumbar region with discogenic back pain and lower extremity pain (principal); M47.816 Spondylosis without myelopathy or radiculopathy, lumbar region; M41.86 Other forms of scoliosis, lumbar region
CPT/HCPCS: 72110